=== PATIENT | female | born 1950 | race Caucasian/White ===

== ENCOUNTER → 2017-11-06 15:01 | Outpatient (CLI) | payer MEDICARE, SELFPAY ==
[2017-11-06 16:08] LABS: Hematocrit 44.1 % (37-47); Hemoglobin 14.7 g/dl (12.0-15.0); Mean Corp Hgb Conc 33.3 g/gl (32-36); Mean Corpuscular Hgb 30.6 pg (27.0-32.0); Mean Corpuscular Volume 91.9 fL (81-99); Platelet Count 266 K/mm3 (150-450); RBC Distribution Width CV 13.7 % (11.6-14.6); RBC Distribution Width SD 45.3 fl (35.1-43.9); White Blood Count 5.8 K/mm3 (4.4-11.0)
[2017-11-06 16:25] LABS: Scan Indicated on CBC? Y/N NO
[2017-11-06 16:38] LABS: Hemoglobin A1c 5.5 % (4.2-6.3)
[2017-11-06 16:46] LABS: ALB/GLOB Ratio 1.1 RATIO (0.9-2.4); AST(SGOT) 21 U/L (15-37); Alanine Aminotransfer ALT/SGPT 30 U/L (13-56); Albumin, Serum 4.1 g/dL (3.2-5.0); Alkaline Phosphatase 71 U/L (45-117); Anion Gap 10 (5-15); BUN 13 mg/dL (7-18); BUN/Creat Ratio 16.1 RATIO (10-20); CRP < 2.90 mg/L (0.0-3.0); Calcium,Total 9.4 mg/dL (8.5-10.1); Chloride 101 mmol/L (98-107); Cholesterol 261 mg/dL (200); Creatinine, Serum 0.81 mg/dL (0.55-1.02); EST Glomerular Filtration Rate 76 mL/min (>60); Est Glom Filt Rate - Afr Amer 92 mL/min (>60); Ferritin 52 ng/mL (8-252); Free T3 2.8 pg/mL (2.18-3.98); Globulin 3.7 g/dL (2.2-4.2); Glucose 79 mg/dL (74-106); High Density Lipoprotein 73 mg/dL; Protein, Total 7.8 g/dL (6.4-8.2); Sodium Level 138 mmol/L (136-145); T4 Free Direct 0.96 ng/dL (0.76-1.46); Thyroid Stim Hormone (TSH) 2.63 uIU/mL (0.358-3.74); Triglycerides 75 mg/dL; Very Low Density Lipoprotein 15 mg/dL (5-40); Vitamin B12 > 2000 pg/mL (211-911); Vitamin D,25 Hydroxy 51.9 ng/mL (19.95-100.01)
[2017-11-11 13:50] LABS: T3 Reverse 21.1 ng/dL (9.2-24.1)
== END ==
PROVIDERS: Family Provider Nurse Practitioner; PCP Nurse Practitioner
DX: E78.00 Pure hypercholesterolemia, unspecified (principal); E55.9 Vitamin D deficiency, unspecified; I25.9 Chronic ischemic heart disease, unspecified; D64.9 Anemia, unspecified; R73.09 Other abnormal glucose; R63.5 Abnormal weight gain; R53.83 Other fatigue
CPT/HCPCS: 36415; 80053; 80061; 82306; 82533; 82607; 82627; 82728; 83036; 84439; 84443; 84481; 84482; 85027; 86140; 82626

== ENCOUNTER → 2018-11-21 11:50 | Outpatient (CLI) | payer MEDICARE, OTHER, SELFPAY ==
[2016-01-16 14:02] VITALS: BMI 37.4
[2018-11-21 12:38] LABS: Absolute Lymphocyte Count 1.67 X10^3/ul (0.83-4.51); Absolute Neutrophil Count 3.1 X10^3/uL (2.0-7.7); Basophil# 0.02 X10^3/uL; Basophil% 0.4 % (0-1); Eosinophil# 0.06 X10^3/uL; Eosinophils% 1.1 % (0-5); Hematocrit 44.9 % (37-47); Hemoglobin 14.1 g/dl (12.0-15.0); Lymphocyte # 1.67 X10^3/ul (4.0); Lymphocyte % 31.3 % (19-41); Mean Corp Hgb Conc 31.4 g/gl (32-36); Mean Corpuscular Hgb 29.5 pg (27.0-32.0); Mean Corpuscular Volume 93.9 fL (81-99); Monocyte% 9.4 % (0-10); Neutrophil # 3.08 X10^3/uL (2.7-7.7); Neutrophil % 57.8 % (47-70); Platelet Count 270 K/mm3 (150-450); RBC Distribution Width CV 13.6 % (11.6-14.6); RBC Distribution Width SD 45.4 fl (35.1-43.9); Red Blood Count 4.78 M/mm3 (4.2-5.4); White Blood Count 5.3 K/mm3 (4.4-11.0)
[2018-11-21 12:43] LABS: POSITIVE COUNT NO; POSITIVE DIFFERENTIAL NO; POSITIVE MORPHOLOGY NO
[2018-11-21 12:50] LABS: Hemoglobin A1c 5.6 % (4.2-6.3)
[2018-11-21 13:15] LABS: Progesterone Level 1.65 ng/mL (See Comment); Vitamin B12 856 pg/mL (211-911); Vitamin D,25 Hydroxy 56.2 ng/mL (29.95-100.01)
[2018-11-21 13:29] LABS: Homocysteine 8.1 umol/L (3.2-10.7)
[2018-11-21 13:30] LABS: BUN 14 mg/dL (7-18); BUN/Creat Ratio 16.9 RATIO (10-20); Calcium,Total 9.3 mg/dL (8.5-10.1); Cholesterol 259 mg/dL (200); Creatinine, Serum 0.83 mg/dL (0.55-1.02); EST Glomerular Filtration Rate 74 mL/min (>60); Est Glom Filt Rate - Afr Amer 89 mL/min (>60); Glucose 84 mg/dL (74-106); Triglycerides 98 mg/dL
[2018-11-21 13:31] LABS: Anion Gap 8 (5-15); CRP, High Sensitivity Cardiac 1.25 mg/L; Chloride 106 mmol/L (98-107); Estradiol 113.4 pg/mL; Ferritin 52 ng/mL (8-252); Free T3 3.1 pg/mL (2.18-3.98); High Density Lipoprotein 75 mg/dL; Iron 138 ug/dL (50-170); Iron Binding Capacity,Total 394 ug/dL (250-450); Potassium 3.5 mmol/L (3.5-5.1); Sodium Level 140 mmol/L (136-145); T4 Free Direct 0.95 ng/dL (0.76-1.46); Thyroid Stim Hormone (TSH) 1.83 uIU/mL (0.358-3.74); Very Low Density Lipoprotein 20 mg/dL (5-40)
[2018-11-24 09:07] LABS: Testosterone, % Free 0.63 % (0.50-2.80); Testosterone, Free 0.38 ng/dL (0.10-0.85); Testosterone, Total 61 ng/dL (3-41)
== END ==
PROVIDERS: Family Provider Nurse Practitioner; PCP Nurse Practitioner
DX: D64.9 Anemia, unspecified (principal); M25.562 Pain in left knee; I25.9 Chronic ischemic heart disease, unspecified; E55.9 Vitamin D deficiency, unspecified; E78.00 Pure hypercholesterolemia, unspecified; R73.09 Other abnormal glucose; R63.5 Abnormal weight gain
CPT/HCPCS: 36415; 80048; 80061; 82306; 82330; 82533; 82607; 82670; 82728; 83036; 83090; 83540; 83550; 84144; 84402; 84403; 84439; 84443; 84481; 85025; 86141

== ENCOUNTER → 2019-06-05 09:22 | Outpatient (CLI) | payer MEDICARE, OTHER, SELFPAY ==
[2019-06-08 13:09] LABS: Testosterone, Free 0.29 ng/dL (0.10-0.85); Testosterone, Total 26 ng/dL (3-41)
== END ==
PROVIDERS: Family Provider Nurse Practitioner; PCP Nurse Practitioner
DX: N95.9 Unspecified menopausal and perimenopausal disorder (principal); F43.0 Acute stress reaction; Z96.659 Presence of unspecified artificial knee joint
CPT/HCPCS: 36415; 84402; 84403

== ENCOUNTER → 2019-08-25 09:53 | Outpatient (CLI) | payer MEDICARE, OTHER, SELFPAY ==
--- NOTE | 2019-08-25 10:07 | RAD_ITS ---
STUDY: X-RAY - LUMBAR SPINE REASON FOR EXAM: Female, 68 years old. Pain. TECHNIQUE: 5 view(s) of the lumbar spine were obtained. COMPARISON: None FINDINGS: Normal lumbar lordosis. There is no substantial scoliosis. There is anteversion of L4 on L5 of 1 cm. The alignment is otherwise preserved. There is multilevel endplate spondylosis of the lumbar vertebrae. There is multi-level degenerative disc disease with multi-level disc space narrowing. There is no evidence of acute fracture or loss of vertebral axial height. There is no demonstrated spondylolysis of the pars interarticulares. Cholecystectomy clips are seen in the right upper quadrant. RAD/L/S Spine Min 4 Views IMPRESSION: Degenerative change lumbar spine with L4-5 spondylolisthesis. Electronically Signed: Mg Mckeon DO at 17:32 EST Tel [phone], Service support ,
== END ==
PROVIDERS: Family Provider Nurse Practitioner; PCP Nurse Practitioner; Referring Provider Nurse Practitioner; Visit Provider Nurse Practitioner
DX: M43.16 Spondylolisthesis, lumbar region (principal); M51.36 Other intervertebral disc degeneration, lumbar region; M48.061 Spinal stenosis, lumbar region without neurogenic claudication
CPT/HCPCS: 72100; 72110

== ENCOUNTER → 2019-10-23 08:35 | Outpatient (CLI) | payer MEDICARE, OTHER, SELFPAY ==
[2016-01-16 14:02] VITALS: BMI 37.4
--- NOTE | 2019-10-23 08:40 | RAD_ITS ---
STUDY: X-RAY - RIGHT SHOULDER REASON FOR EXAM: Female, 68 years old. CHRONIC BILAT PAIN TECHNIQUE: 3 view(s) of the shoulder on 4 images. COMPARISON: 2 post reduction views of the right shoulder August 10, 2012. FINDINGS: Normal glenohumeral articulation. Normal acromioclavicular joint. Normal acromion. There are subcortical cystic degenerative changes in the anterolateral margin of the humeral head. Normal visualized proximal humerus. The soft tissue structures are unremarkable. There is no demonstrated osseous destructive lesion or acute fracture. Normal visualized pulmonary apex. RAD/Shoulder min 2 Views IMPRESSION: Minor subcortical cystic degenerative changes in the anterolateral right humeral head, otherwise unremarkable x-ray examination of the right shoulder. Electronically Signed: Jason Jang MD at 8:52 EST , Service support ,
--- NOTE | 2019-10-23 08:40 | RAD_ITS ---
STUDY: X-RAY - LEFT SHOULDER REASON FOR EXAM: Female, 68 years old. CHRONIC BILAT PAIN TECHNIQUE: 3 view(s) of the shoulder on 4 images. COMPARISON: None. FINDINGS: Normal glenohumeral articulation. Normal acromioclavicular joint. Normal acromion. There are small subcortical cystic degenerative changes in the anterolateral margin of the humeral head. Normal visualized proximal humerus. The soft tissue structures are unremarkable. There is no demonstrated osseous destructive lesion or acute fracture. Normal visualized pulmonary apex. Multilevel [id number] degenerative changes are seen in the visualized spine. RAD/Shoulder min 2 Views IMPRESSION: No acute osseous abnormality of the left shoulder. Electronically Signed: Jason Jang MD at 8:53 EST , Service support ,
== END ==
PROVIDERS: PCP Nurse Practitioner; Referring Provider Nurse Practitioner; Visit Provider Nurse Practitioner
DX: M25.511 Pain in right shoulder (principal); M25.512 Pain in left shoulder
CPT/HCPCS: 73030

== ENCOUNTER 2020-01-01 09:00 | Outpatient (RCR) | payer MEDICARE, OTHER, SELFPAY ==
--- NOTE | 2019-09-02 12:16 | HP.PTEVAL_ITS ---
Patient's Visit Information REZA MIGUEL is a 68 year old F referred to Physical Therapy by AHSWIN Whitten with a diagnosis of LOW BACK PAIN. Date of Evaluation: 09/02/19 Physical Therapist: Eli Desir PT, Cert MDT - Visit Plan Frequency: 2-3x /Week Duration: 4-6 Weeks Plan: NO BACK EXTENSION. POSTURE CORRECTION/STRENGTHENING, INSTRUCTION IN APPROPRIATE BODY MECHANICS (ESPEICALLY SPECIFIC TO CARE GIVEN) AND ACTIVITY MODIFICATIONS. DLS STARTING WITH A NEUTRAL SPINE PROGRESSING ROM TOLERATED. EVELIA LE ROM, STRETCHING AND STRENGTHENING. HEP INSTRUCTION. 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 Disability: NO. Present symptoms: LOW BACK PAIN. INTERMITTENT EVELIA LE SX'S (PAIN, NUMBNESS AND TINGLING) THE BOTTOM OF MY FEET FEEL LIKE I HAVE PRICKLIES. Present since: QUITE A FEW YEARS. Pain Scale: WORST 7/10, LEAST 0/10. Currently: 5/10. Commenced as a result of: TAKING CARE OF MOM - HOSPICE. TRANSFERRING MOM. HELPED HER 5 DAYS IN A ROW BEFORE GI. ALSO HAD TO LIFT MOTHER IN LAW. Symptoms at onset: LOW BACK PAIN. Worse: LEANING OVER THE BED, LIFTING, SITTING IN THE CAR, STANDING TOO LONG. Better: HOT SHOWER, RESTING, LAZY BOY, LYING DOWN. Disturbed sleep: NO. Previous history/Previous treatment: CHIROPRACTOR. NO BACK SURGERY. NO WENCESLAO'S. HAS HAD ONE LUIS'T WITH DR. LEAL (2011) WITH WENCESLAO RECOMMENDED BUT PATIENT REFUSED AND HAS NOT BEEN BACK. Coughing/sneezing/straining: POSITIVE. Gait: I DON'T WALK STRAIGHT BECAUSE OF MY BACK AND MY KNEE. LEFT TKR 2016. Difficulty initiating urinatin: NO. Accidents: FALL AT HOME IN 2006 - INJURED RIGHT KNEE. Unexplained weight loss: NO. Imaging: LUMBAR X-RAY - L45 SPONDYLOLISTHESIS, SPONDYLOSIS AND DDD WITHOUT SPONDYLOYSIS. PMH/Recent major surgery: LEFT TKR 2016 - I NEVER HAD A FULL RECOVERY - (DR. ARCE). OTHER: PATIENT REPORTS SHE DOES A LOT OF OTHER LIFTING AT HOME TOO - LIFTING 50 LB BAGS OF SALT AT HOME TODAY. - Objective Sitting/Standing Posture: POOR. INCREASED TRUNK FLEXION. Active Correction of posture: WORSE. Other Observations: UNABLE TO TRANSFER FROM SIT TO STAND WITHOUT UE ASSIST. INDEP GAIT INTO PT WITHOUT ANY ASSISTIVE DEVICES OR LOB BUT LIMPING ON LLE. Motor deficit: EVELIA LE WEAKNESS - RIGHT HIP 4/5, LEFT HIP 4-/5. RIGHT KNEE 4/5, LEFT KNEE 4-/5, ANKLES 5/5. Sensory deficit: EVELIA LE LIGHT TOUCH SENSATION INTACT AND SYMMETRICAL. ROM deficit: EVELIA LE'S WFL. Reflexes: NT. Dural Signs: NEGATIVE EVELIA LE'S. Lumbar mvmt loss: flex - NIL. ext - NT. R SG - JOHANNA. L SG - MOD. LUMBAR ROM TESTING ALL PLANES INCREASES C/O LBP. Core strength: POOR. OTHER: PATIENT AGGITATED ABOUT QUESTIONAIRE AND DID NOT WANT TO COMPLETE IT. THIS PT RECOMMENDED AQUATIC THERAPY. DISCUSSED POSSIBLE BENEFITS OF AQUATIC THERAPY AND PATIENT REFUSING AT THIS TIME BUT STATES SHE MAY CONSIDER IN THE FUTURE. - Goals Goal 1:: DECREASE C/O LBP AND EVELIA LE SX'S. Goal Time Frame: 4-6 Weeks Goal 2:: IMPROVE BENDING, LIFTING, SITTING, STANDING, WALKING, LEANING, PUSHING, PULLING, CARETAKING AND TRAVEL FUNCITON. Goal Time Frame: 4-6 Weeks Goal 3:: INSTRUCT IN PROPHYLAXIS Goal Time Frame: 4-6 Weeks - Rehabilitation Potential Rehabilitation Potential: Fair - Anticipated Interventions Patient/Client Instruction: Educate patient on: Condition, Plan of Care, Risk Factors, Benefits of Fitness Program For the Purpose of:: To improve self management Therapeutic Exercise to Include: Strength training, Body mechanics, Postural training, Dynamic Lumbar Stabilization For the Purpose of:: To decrease pain, To increase ROM, To improve muscle performance and motor function, To increase tolerance to activity/condition/position, To improve ability of physical actions for home/community/work/leisure, To improve gait and locomotor functions Thank you for the opportunity to evaluate your patient. For Medicare and Medicare HMO plans, please review the plan of care and approve it. It will need to be FAXED BACK to us at [phone] for Medicare purposes. For Medicare only, by signing this I certify the plan of care. Please let me know if there are questions or concerns regarding this plan of care. Physician Signature: Date:
--- NOTE | 2019-10-21 10:15 | HP.PTREVAL ---
Fariha Houser, ROOFING MACHINE OPERATOR-C, It has been my pleasure to treat REZA MIGUEL over the last 7 visits for LOW BACK PAIN. Please see the progress note below for an update on the physical therapy plan of care! Subjective: PATIENT REPORTS SHE WAS TAKING CARE OF HER MOTHER AT THE BEGINNING OF SEPTEMBER AND SHE CANCELLED HER LUIS'TS. MOTHER SEP 30 2019. THIS IS THE FIRST SHE HAS BEEN ABLE TO GET BACK TO PT. PATIENT REPORTS SHE IS A TINY BIT BETTER SINCE HAVING SOME THERAPY BUT SHE KNOWS SHE NEEDS MORE. SHE REPORTS THERAPY WAS HELPING BEFORE SHE HAD TO STOP TO BE WITH HER MOTHER. HELPING [id number] NOW. SEEING A CHIROPRACTOR FOR LEFT SHOULDER PAIN. HAD A FALL ON LEFT SHLD A FEW YEARS AGO. Objective/Function: PATIENT WAS SEEN TODAY FOR RE-ASSESSMENT OF PROGRESS TOWARD THE SET PT GOALS AND THE NEED FOR FURTHER PHYSICAL THERAPY VS READINESS FOR DISCHARGE. SHE WAS TOLERATING LAND THERAPY WELL PRIOR TO NEEDING TO HOLD THERAPY TO BE WITH HER MOTHER. UPON EXAM TODAY:PATIENT IS UNABLE TO TRANSFER FROM SIT TO STAND WITHOUT UE ASSIST. INDEP GAIT INTO PT WITHOUT ANY ASSISTIVE DEVICES OR LOB BUT LIMPING ON LLE. Motor deficit: EVELIA LE WEAKNESS - RIGHT HIP 4/5, LEFT HIP 4-/5. RIGHT KNEE 4/5, LEFT KNEE 4-/5, ANKLES 5/5. Sensory deficit: EVELIA LE LIGHT TOUCH SENSATION INTACT AND SYMMETRICAL. ROM deficit: EVELIA LE'S WFL. Reflexes: NT. Dural Signs: NEGATIVE EVELIA LE'S. Lumbar mvmt loss: flex - NIL. ext - NT. R SG - JOHANNA. L SG - MOD. LUMBAR ROM TESTING ALL PLANES INCREASES C/O LBP. Core strength: POOR Plan Plan: *NO BACK EXTENSION. *LEFT SHLD PAIN. POSTURE CORRECTION/STRENGTHENING, INSTRUCTION IN APPROPRIATE BODY MECHANICS (ESPEICALLY SPECIFIC TO CARE GIVEN) AND ACTIVITY MODIFICATIONS. DLS STARTING WITH A NEUTRAL SPINE PROGRESSING ROM TOLERATED. EVELIA LE ROM, STRETCHING AND STRENGTHENING. HEP INSTRUCTION. Goals Goal 1:: DECREASE C/O LBP AND EVELIA LE SX'S. Goal Time Frame: 4-6 Weeks Goal Progress: Progressing Goal 2:: IMPROVE BENDING, LIFTING, SITTING, STANDING, WALKING, LEANING, PUSHING, PULLING, CARETAKING AND TRAVEL FUNCITON. Goal Time Frame: 4-6 Weeks Goal Progress: Progressing Goal 3:: INSTRUCT IN PROPHYLAXIS Goal Time Frame: 4-6 Weeks Goal Progress: Progressing Anticipated Interventions Patient/Client Instruction: Educate patient on: Condition, Plan of Care, Risk Factors, Benefits of Fitness Program For the Purpose of:: To improve self management Therapeutic Exercise to Include: Strength training, Body mechanics, Postural training, Dynamic Lumbar Stabilization For the Purpose of:: To decrease pain, To increase ROM, To improve muscle performance and motor function, To increase tolerance to activity/condition/position, To improve ability of physical actions for home/community/work/leisure, To improve gait and locomotor functions Please do not hesitate to contact me at [phone] by phone or if you have questions or concerns regarding this new plan of care! Sincerely, Eli Desir, PT, Cert MDT
--- NOTE | 2019-11-19 10:53 | HP.PTREVAL_ITS ---
Fariha Houser, CLINIC DIRECTOR-C, It has been my pleasure to treat REZA MIGUEL over the last 16 visits for LOW BACK PAIN. Please see the progress note below for an update on the physical therapy plan of care! Subjective: Doing some better in back. Able to do more activities but increase back pain with housework tasks. No pain right. Patient has new order to c ontinue for shoulder. Patient has bilateral shoulder pain left > to right. Patient denies parathesia in arms. Aggravetin factors raising arm OH and housework tasks. Patient unable to sleeping on left . Fell 2 weeks ago. x-rays - Objective/Function: POSTURE: rounded shoulders head foward. NEURO: denies parathesia/tingling ,reflexes C-6-7 2/3. L3-4,L4-5,L5-S1 2/3. PALAPTION: tender AC. AROM:BILATERAL SHOULDER flexion 150 degrees,abduction,ER 90 pain ER. MMT: RTC 4/5,DELTOID 4-/5 MILD PAIN. LUMBAR ROM: flexion WFL,extension WFL,side glides min loss. +GERRI/FREDDY GERBER. MMT: quads/hams 4/5,hip flexion 4-/5 ankle 4/5 Plan Plan: *NO BACK EXTENSION. CONT WITH [id number] /[id number] DLS,POSTURAL EX'S ,LE STRENGTHENING ADD ,RTC/SCAPULAR EX'S,MODALTIES, Goals Goal 1:: DECREASE C/O LBP AND EVELIA LE SX'S. Goal Time Frame: 4-6 Weeks Goal Progress: Progressing Goal 2:: IMPROVE BENDING, LIFTING, SITTING, STANDING, WALKING, LEANING, PUSHING, PULLING, CARETAKING AND TRAVEL FUNCITON. Goal Time Frame: 4-6 Weeks Goal Progress: Progressing Goal 3:: INSTRUCT IN PROPHYLAXIS Goal Time Frame: 4-6 Weeks Goal Progress: Progressing Goal 4:: NEW GOAL: DECREASE PAIN BILATERAL SHOULDERS BY 50% OT > TO IMPROVE FUNCTION WITH ADLS Goal Time Frame: 4-6 Weeks Goal 5:: NEW GOAL : PATEINT INCREASE STRENGTH BILATERAL DELTOID 4/5 WITH ;LESS PAIN FOR OH ACTIVITIES. Goal Time Frame: 4-6 Weeks Goal 6:: NEW GOAL: PATIENT ABLE TO IMPROVE ABILITY TO PERFORM ADLS' AND HOUSEWORK TASKS ABOVE 90 DEGREES Anticipated Interventions Patient/Client Instruction: Educate patient on: Condition, Plan of Care, Risk Factors, Benefits of Fitness Program For the Purpose of:: To improve self management Therapeutic Exercise to Include: Strength training, Body mechanics, Postural training, Dynamic Lumbar Stabilization For the Purpose of:: To decrease pain, To increase ROM, To improve muscle performance and motor function, To increase tolerance to activity/condition/position, To improve ability of physical actions for home/community/work/leisure, To improve gait and locomotor functions Please do not hesitate to contact me at [phone] by phone or if you have questions or concerns regarding this new plan of care! Sincerely, Jordan Bower, PT, Cert MDT, OCS
--- NOTE | 2020-01-01 10:09 | HP.PTDCSUM ---
It has been my pleasure to treat REZA MIUGEL referred by Fariha Houser ELECTRICAL LABORATORY TECHNICIAN-C, with the diagnosis of LOW BACK PAIN for a total of 26 visit(s). Discharge Date: 01/01/20 Please see the following information for a summary of their discharge status. Subjective: Doing better overall.. Able to do ADL's function and houserwork tasks . Shoulder increase with activities Bilateral Shoulder Pain Intensity (Out of 10): 3 LB Pain Intensity (Out of 10): 3 % Improvement: 60 Objective/Function: POSTURE: MILD THORACIC KYPHOSIS. GAIT:NORMAL JENNIFER. MMT: QUADS/HAMS 4/5,4-/5 HIP ,ANKLE 4/5. LUMBAR ROM: FLEXION WFL,EXTNSION MIN LOSS. AROM SHOULDER : FLEXION 160 DEGREES,ABD 155 DEGREES ,ER 90 DEGREES. MMT: RTC 4/5,DELTOID 4-/5 Goal 1:: DECREASE C/O LBP AND EVELIA LE SX'S. Goal Progress: Goal Met Goal 2:: IMPROVE BENDING, LIFTING, SITTING, STANDING, WALKING, LEANING, PUSHING, PULLING, CARETAKING AND TRAVEL FUNCITON. Goal Progress: Goal Met Goal 3:: INSTRUCT IN PROPHYLAXIS Goal Progress: Goal Met Goal 4:: NEW GOAL: DECREASE PAIN BILATERAL SHOULDERS BY 50% OT > TO IMPROVE FUNCTION WITH ADLS Goal Progress: Goal Met Goal 5:: NEW GOAL : PATEINT INCREASE STRENGTH BILATERAL DELTOID 4/5 WITH ;LESS PAIN FOR OH ACTIVITIES. Goal Progress: Goal Met Goal 6:: NEW GOAL: PATIENT ABLE TO IMPROVE ABILITY TO PERFORM ADLS' AND HOUSEWORK TASKS ABOVE 90 DEGREES Goal Progress: Goal Met Plan: D/C TO [facility] Discharge Comments: [facility]P If there are questions or concerns regarding this patient's physical therapy, please feel free to call me at [phone]. Thank you for the referral of this patient. Sincerely, Jordan Bower, PT, Cert MDT, OCS
== END 2020-01-01 19:00 | disposition home or self-care (01) ==
LOC: PT 09:00
PROVIDERS: Family Provider Nurse Practitioner; PCP Nurse Practitioner; Referring Provider Nurse Practitioner; Visit Provider Nurse Practitioner
DX: M54.5 Low back pain (principal); M25.511 Pain in right shoulder; M25.512 Pain in left shoulder
CPT/HCPCS: 97014; 97035; 97110; 97162; 97164; G0283

== ENCOUNTER → 2020-02-03 09:53 | Outpatient (CLI) | payer MEDICARE, OTHER, SELFPAY ==
--- NOTE | 2020-02-03 10:00 | BD_ITS ---
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 COMPARISON: None. FINDINGS: Lumbar Spine (L1-L4): g/cm2 (1.231) / T-score (0.3) / Z-score (1.9) Findings are suggestive of normal bone density with a low fracture risk. Left Femur Total: g/cm2 (0.861) / T-score (-1.2) / Z-score (0.1) Left Femoral Neck: g/cm2 (0.807) / T-score (-1.7) / Z-score (-0.1) Right Femur Total: g/cm2 (0.849) / T-score (-1.3) / Z-score (0.0) Right Femoral Neck: g/cm2 (0.788) / T-score (-1.8) / Z-score (0.2) BD/Dexa Bone Density Study IMPRESSION: The patient is considered osteopenic as outlined below according to World Gio Organization (WHO) criteria with a moderate fracture risk. Reference Information: The T-score is the number of standard deviations above or below the standard which is normal for young adults at their peak bone mineral density. The World Health Organization (WHO) interprets the T-scores as follows: Above -1 Normal bone density Between -1 and -2.5 Osteopenia Equal to / or below -2.5 Osteoporosis As a practical clinical guideline, osteopenia may be graded as follows: Mild -1 through -1.5 Moderate -1.6 through -2.0 Severe -2.1 through -2.4 The Z-score is the number of standard deviations above or below age-matched controls. A Z-score of less than -1.5 would be considered abnormal. References: 1. NIH Osteoporosis and Related Bone Diseases http://www.osteo.org 2. International Society for Clinical Densitometry http://www.iscd.org 3. National Osteoporosis Foundation http://www.nof.org Electronically Signed: Ángel Sevilla, at 10:08 EDT , Service support ,
== END ==
PROVIDERS: PCP Nurse Practitioner; Referring Provider Nurse Practitioner; Visit Provider Nurse Practitioner
DX: Z78.0 Asymptomatic menopausal state (principal)
CPT/HCPCS: 77080

== ENCOUNTER → 2020-03-14 11:22 | Outpatient (CLI) | payer MEDICARE, OTHER, SELFPAY ==
[2020-03-09 12:13] VITALS: BMI 37.4
--- NOTE | 2020-03-14 11:25 | US_ITS ---
STUDY: ULTRASOUND OF THE FEMALE PELVIS - COMPLETE REASON FOR EXAM: Female, 69 years old. UTERINE PROLAPSE LMP: The patient is postmenopausal. TECHNIQUE: Transabdominal and Transvaginal TECHNICAL QUALITY: Adequate. COMPARISON: None. FINDINGS: The uterus is anteverted and is in a midline position. The uterus measures 6.9 cm x 2.9 cm x 4.3 cm. Normal uterine cervix. The endometrium measures 5.0 mm in thickness, and is . There is no demonstrated endometrial mass. There is no demonstrated myometrial mass. I.U.D. - The patient does not have an I.U.D. The right ovary is non-visualized. The left ovary is non-visualized. There is no fluid in the cul-de-sac. The pre void volume of the bladder was 306 ml. Polycystic ovary disease: No. US/Pelvic (Non ) IMPRESSION: Uterine prolapse. Endometrial thickening. Electronically Signed: Ángel Sevilla, at 8:55 EDT , Service support ,
--- NOTE | 2020-03-14 11:25 | US_ITS ---
STUDY: ULTRASOUND OF THE FEMALE PELVIS - COMPLETE REASON FOR EXAM: Female, 69 years old. UTERINE PROLAPSE LMP: The patient is postmenopausal. TECHNIQUE: Transabdominal and Transvaginal TECHNICAL QUALITY: Adequate. COMPARISON: None. FINDINGS: The uterus is anteverted and is in a midline position. The uterus measures 6.9 cm x 2.9 cm x 4.3 cm. Normal uterine cervix. The endometrium measures 5.0 mm in thickness, and is . There is no demonstrated endometrial mass. There is no demonstrated myometrial mass. I.U.D. - The patient does not have an I.U.D. The right ovary is non-visualized. The left ovary is non-visualized. There is no fluid in the cul-de-sac. The pre void volume of the bladder was 306 ml. Polycystic ovary disease: No. US/Transvaginal Non- IMPRESSION: Uterine prolapse. Endometrial thickening. Electronically Signed: Ángel Sevilla, at 8:55 EDT , Service support ,
== END ==
PROVIDERS: PCP Nurse Practitioner; Referring Provider Obstetrics & Gynecology; Visit Provider Obstetrics & Gynecology
DX: N81.2 Incomplete uterovaginal prolapse (principal)
CPT/HCPCS: 76830; 76856

== ENCOUNTER → 2020-03-21 13:46 | Outpatient (CLI) | payer MEDICARE, OTHER, SELFPAY ==
[2020-03-09 12:13] VITALS: BMI 37.4
[2020-03-21 15:36] LABS: Homocysteine 6.9 umol/L (3.2-10.7)
[2020-03-21 15:57] LABS: Progesterone Level 0.69 ng/mL (See Comment); Vitamin D,25 Hydroxy 42.1 ng/mL
[2020-03-21 17:06] LABS: Vitamin B12 > 2000 pg/mL (211-911)
[2020-03-21 17:32] LABS: ALB/GLOB Ratio 1.1 RATIO (0.9-2.4); AST(SGOT) 25 U/L (15-37); Alanine Aminotransfer ALT/SGPT 33 U/L (13-56); Albumin, Serum 4.1 g/dL (3.2-5.0); Alkaline Phosphatase 71 U/L (45-117); Anion Gap 7 (5-15); BUN 15 mg/dL (7-18); BUN/Creat Ratio 19.6 RATIO (10-20); Calcium,Total 9.1 mg/dL (8.5-10.1); Chloride 103 mmol/L (98-107); Cholesterol 273 mg/dL (200); Creatinine, Serum 0.77 mg/dL (0.55-1.02); EST Glomerular Filtration Rate 80 mL/min (>60); Est Glom Filt Rate - Afr Amer 97 mL/min (>60); Estradiol 54.5 pg/mL; Ferritin 53 ng/mL (8-252); Free T3 2.9 pg/mL (2.18-3.98); Globulin 3.8 g/dL (2.2-4.2); Glucose 76 mg/dL (74-106); High Density Lipoprotein 77 mg/dL; Iron 99 ug/dL (50-170); Iron Binding Capacity,Total 419 ug/dL (250-450); Magnesium 2.3 mg/dL (1.6-2.6); PERCENT IRON SATURATION 23.6 % (15.0-55.0); Potassium 3.4 mmol/L (3.5-5.1); Protein, Total 7.9 g/dL (6.4-8.2); Sodium Level 137 mmol/L (136-145); T4 Free Direct 0.91 ng/dL (0.76-1.46); Thyroid Stim Hormone (TSH) 2.41 uIU/mL (0.358-3.74); Triglycerides 76 mg/dL; Uric Acid 5.7 mg/dL (2.6-6.0); Very Low Density Lipoprotein 15 mg/dL (5-40)
[2020-03-22 11:18] LABS: Hematocrit 43.7 % (37-47); Mean Corpuscular Hgb 30.2 pg (27.0-32.0); Mean Corpuscular Volume 94.4 fL (81-99); Mean Platelet Vol. 9.5 fl (6.2-12.0); Platelet Count 268 K/mm3 (150-450); RBC Distribution Width CV 14.3 % (11.6-14.6); RBC Distribution Width SD 49.2 fl (35.1-43.9); Red Blood Count 4.63 M/mm3 (4.2-5.4); White Blood Count 5.2 K/mm3 (4.4-11.0)
[2020-03-22 11:43] LABS: Insulin 7.3 mU/L (2.6-37.6)
[2020-03-22 11:46] LABS: Hemoglobin A1c 5.3 % (3.8-5.6)
[2020-03-30 08:09] LABS: Testosterone, % Free 1.81 % (0.50-2.80); Testosterone, Free 0.92 ng/dL (0.10-0.85); Testosterone, Total 51 ng/dL (3-41); Thyroid Peroxidase AB < 9 IU/mL (0-34)
[2020-03-30 14:39] LABS: Anti-Thyroglobulin AB < 1.0 IU/mL (0.0-0.9); G6PD Quant Test 244 (146-376); Thyroglobulin, Serum Qt. 12.1 ng/mL (1.5-38.5)
[2020-04-05 14:45] LABS: Lipoprotein A 10.9 nmol/L (<75.0); T3 Reverse 14.2 ng/dL (9.2-24.1)
== END ==
PROVIDERS: PCP Nurse Practitioner
DX: R53.83 Other fatigue (principal); E55.9 Vitamin D deficiency, unspecified; N95.9 Unspecified menopausal and perimenopausal disorder; E66.8 Other obesity; R52 Pain, unspecified
CPT/HCPCS: 36415; 80053; 80061; 81291; 82306; 82330; 82533; 82607; 82627; 82670; 82728; 82746; 82955; 83036; 83090; 83525; 83540; 83550; 83695; 83735; 84144; 84270; 84402; 84403; 84432; 84439; 84443; 84481; 84482; 84550; 85027; 86141; 86376; 86800; 82626

== ENCOUNTER → 2020-04-15 11:12 | Outpatient (CLI) | payer MEDICARE, OTHER, SELFPAY ==
[2020-03-09 12:13] VITALS: BMI 37.4
[2020-04-15 12:51] LABS: Vitamin D,25 Hydroxy 50.5 ng/mL
[2020-04-15 12:53] LABS: AST(SGOT) 19 U/L (15-37); Alanine Aminotransfer ALT/SGPT 30 U/L (13-56); Albumin, Serum 3.8 g/dL (3.2-5.0); Alkaline Phosphatase 74 U/L (45-117); Anion Gap 4 (5-15); BUN 16 mg/dL (7-18); BUN/Creat Ratio 19.1 RATIO (10-20); Calcium,Total 8.8 mg/dL (8.5-10.1); Chloride 106 mmol/L (98-107); Creatinine, Serum 0.84 mg/dL (0.55-1.02); EST Glomerular Filtration Rate 72 mL/min (>60); Est Glom Filt Rate - Afr Amer 87 mL/min (>60); Globulin 3.8 g/dL (2.2-4.2); Glucose 82 mg/dL (74-106); Potassium 3.7 mmol/L (3.5-5.1); Protein, Total 7.6 g/dL (6.4-8.2); Sodium Level 140 mmol/L (136-145)
== END ==
PROVIDERS: PCP Nurse Practitioner
DX: E55.9 Vitamin D deficiency, unspecified (principal); N95.9 Unspecified menopausal and perimenopausal disorder; E66.8 Other obesity; R53.83 Other fatigue; R52 Pain, unspecified
CPT/HCPCS: 36415; 80053; 82306

== ENCOUNTER → 2020-05-17 11:00 | Outpatient (CLI) | payer MEDICARE, OTHER, SELFPAY ==
[2020-03-09 12:13] VITALS: BMI 37.4
[2020-05-09 14:12] VITALS: BMI 37.4
--- NOTE | 2020-05-17 16:04 | EKG12_ITS ---
Test Reason : PRE-OP Blood Pressure : / mmHG Vent. Rate : 086 BPM Atrial Rate : 086 BPM P-R Int : 138 ms QRS Dur : 134 ms QT Int : 384 ms P-R-T Axes : 080 059 021 degrees QTc Int : 459 ms Normal sinus rhythm Right bundle branch block Abnormal ECG Confirmed by YAMILETH WALKER, KARIN ([id number]), editor publications LISA GE ([id number]) on 05/19/2020 10:59:19 AM Referred By: Candice Marte Confirmed By:KARIN CARSON MD
[2020-05-17 17:03] LABS: Hematocrit 42.3 % (37-47); Hemoglobin 13.4 g/dL (12.0-15.0); Mean Corp Hgb Conc 31.7 g/dL (32-36); Mean Corpuscular Hgb 29.8 pg (27.0-32.0); Mean Platelet Vol. 9.7 fl (6.2-12.0); Platelet Count 294 K/mm3 (150-450); RBC Distribution Width CV 13.7 % (11.6-14.6); White Blood Count 6.4 K/mm3 (4.4-11.0)
[2020-05-17 17:30] LABS: AST(SGOT) 18 U/L (15-37); Alanine Aminotransfer ALT/SGPT 27 U/L (13-56); Albumin, Serum 3.7 g/dL (3.2-5.0); Alkaline Phosphatase 74 U/L (45-117); Anion Gap 3 (5-15); BUN 19 mg/dL (7-18); Calcium,Total 9.1 mg/dL (8.5-10.1); Chloride 109 mmol/L (98-107); Creatinine, Serum 0.86 mg/dL (0.55-1.02); EST Glomerular Filtration Rate 70 mL/min (>60); Est Glom Filt Rate - Afr Amer 84 mL/min (>60); Globulin 3.7 g/dL (2.2-4.2); Glucose 93 mg/dL (74-106); Potassium 3.5 mmol/L (3.5-5.1); Protein, Total 7.4 g/dL (6.4-8.2); Sodium Level 142 mmol/L (136-145)
[2020-05-17 17:32] LABS: Magnesium 2.3 mg/dL (1.6-2.6)
== END ==
PROVIDERS: Anesthesiology; PCP Nurse Practitioner; Referring Provider Obstetrics & Gynecology; Visit Provider Obstetrics & Gynecology
DX: Z01.818 Encounter for other preprocedural examination (principal); Z11.59 Encounter for screening for other viral diseases
CPT/HCPCS: 36415; 80053; 83735; 85027; 86850; 86900; 86901; 87635; 93005; C9803; U0003

== ENCOUNTER → 2020-05-27 09:43 | Outpatient (CLI) | payer MEDICARE, OTHER, SELFPAY ==
[2020-05-09 14:12] VITALS: BMI 37.4
--- NOTE | 2020-05-27 09:43 | ECHOD_ITS ---
Reason For Study: RBBB ON EKG Procedure This was a 2D Doppler, Color Flow transthoracic echocardiogram. Exam performed in department. Left Ventricle Normal LV size. The estimated ejection fraction is 55 %. No evidence for diastolic dysfunction. No regional wall motion abnormalities noted. Right Ventricle Normal RV size. Normal systolic function. Atria Normal left atrium. Normal right atrium. No doppler evidence for ASD. Mitral Valve mild mitral valve prolapse. There is no mitral valve stenosis. Trivial mitral valve insufficiency. Tricuspid Valve There is no tricuspid stenosis. Trivial tricuspid valve insufficiency. Pulmonary artery systolic pressure is 35 mmHg. Aortic Valve Trisinus/trileaflet aortic valve. There is no aortic stenosis. No aortic valve insufficiency. Pulmonic Valve There is no pulmonic valvular stenosis. No pulmonic valve insufficiency. Great Vessels Normal aortic root. Pericardium/Pleural No pericardial effusion. MMode/2D Measurements & Calculations LVIDd: 4.2 cm IVSd: 0.98 cm Ao root diam: 3.7 cm LVIDs: 3.0 cm LVPWd: 0.95 cm RVDd: 2.9 cm FS: 30.3 % LAV(MOD-bp): 50.1 ml LVAd ap4: 29.8 cm2 SV(MOD-sp4): 59.4 ml LAV(MOD-bp) Indexed: 25.7 ml/m2 EDV(MOD-sp4): 100.5 ml LAV(MOD-sp2): 52.7 ml EDV(sp4-el): 104.1 ml LAV(MOD-sp4): 44.7 ml LVAs ap4: 17.7 cm2 ESV(MOD-sp4): 41.1 ml ESV(sp4-el): 40.6 ml EF(MOD-sp4): 59.1 % EF(sp4-el): 61.0 % SV(sp4-el): 63.5 ml LA A4 area: 17.4 cm2 LA dimension(2D): 3.7 cm RA A4 area: 11.9 cm2 Time Measurements MV dec time: 0.21 sec Doppler Measurements & Calculations MV E max narinder: 87.5 cm/sec Lat Peak E' Narinder: 11.6 cm/sec Med Peak E' Narinder: 9.2 cm/sec MV A max narinder: 66.4 cm/sec E/E' lat: 7.5 E/E' med: 9.5 MV E/A: 1.3 Ao V2 max: 119.1 cm/sec LV V1 max: 101.8 cm/sec PA V2 max: 83.9 cm/sec Ao max P.7 mmHg LV V1 max P.1 mmHg TR max narinder: 260.1 cm/sec TR max P.1 mmHg Interpretation Summary The estimated ejection fraction is 55 %. No evidence for diastolic dysfunction. Trivial mitral valve insufficiency. Trivial tricuspid valve insufficiency. mild mitral valve prolapse Ordering Physician: Candice Marte Referring Physician: ION FULTON Performed By: Karen Berrios RDCS
== END ==
PROVIDERS: PCP Nurse Practitioner; Referring Provider Obstetrics & Gynecology; Visit Provider Obstetrics & Gynecology
DX: R94.31 Abnormal electrocardiogram [ECG] [EKG] (principal)
CPT/HCPCS: 93306

== ENCOUNTER 2020-07-05 08:17 | Day surgery (SDC) | payer MEDICARE, OTHER, SELFPAY ==
[2020-05-09 14:12] VITALS: BMI 37.4
--- NOTE | 2020-07-02 18:00 | PCM.HPOB.BLA ---
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 combo case with milena. History and Physical Date of Admission: 07/05/20 Intake Vital Signs 05/09/20 BMI 37.4 05/09/20 Height 5 ft 1.5 in 05/09/20 Weight: 206 lb 05/09/20 BMI 38.2 05/09/20 BP 140/80 H Intake Visit Reasons: pre op [employer]ating [employer] Supervisor Required: No Is patient in pain?: No Allergies amoxicillin trihydrate [From Augmentin] Allergy (Verified 05/09/20 14:04) Rash morphine Allergy (Verified 05/09/20 14:04) Other potassium clavulanate [From Augmentin] Allergy (Verified 05/09/20 14:04) Rash perfume Adverse Reaction (Verified 05/09/20 14:04) Nausea petrolatum,white [From Petroleum Jelly] Adverse Reaction (Verified 05/09/20 14:04) Other tramadol Adverse Reaction (Verified 05/09/20 14:04) Unknown NITRO PATCH Adverse Reaction (Uncoded 01/03/16 16:00) Other Medications Biestrogen TOPICAL DAILY 01/03/16 [History Confirmed 05/09/20] Progesterone 20% TOPICAL QHS 01/03/16 [History Confirmed 05/09/20] Testosterone 1% applicatio TOPICAL DAILY 01/03/16 [History Confirmed 05/09/20] Is last menstrual period known: No Post menopausal: Yes Patient : No : No [facility] [place] Medical History (Updated 05/09/20 @ 14:[address] 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 Candice Marte MD) Smoking Status: Never smoker alcohol intake: never substance use type: does not use caffeine: Yes what type of physical activity do you participate in: walking do you feel safe at home: Yes additional social history: [employer]- retired HPI pre op: Details: REZA MIGUEL is a 69 year old who presents for preoperative visit. she is having a TVHBS combo case with dr abbott. she declines ovarian removal unless they are cancerous. Pregancy History 1 Elective abortions Hx Para 0 Spontaneous abortions 1 Hx # Term Pregnancies Ectopic pregnancies Hx # Pregnancies Multiple births # of living children ROS Const Constitutional: Denies fatigue, fever(s), headache(s), increased appetite, poor appetite, weight gain or weight loss ENT ENT: Denies dizziness or dry mouth Cardio Card: Denies chest pain Resp Resp: Denies cough or dyspnea GI GI: Reports as per HPI; denies abdominal pain, constipation, nausea or vomiting : Reports as per HPI; denies difficulty urinating, painful urination, pelvic pain, urinary frequency, urinary incontinence, urinary hesitancy, urinary urgency, vaginal discharge, vaginal dryness, vaginal odor or vaginal itching Musc Musc: Denies joint pain, back pain or muscle weakness Skin Skin/Breast: Denies hair loss, change in hair, dry skin, breast lump, breast pain or breast skin changes Neuro Neuro: Denies dizziness Psych Psych: Reports anxiety; denies depression Endo Endo: Denies cold intolerance, excessive sweating, heat intolerance or increased thirst Harsh/Lymph Hematologic/Lymphatic: Denies easy bleeding, Denies easy bruising, Denies enlarged lymph nodes Exam Const General: cooperative, healthy appearing, comfortable, no acute distress, well developed Orientation: alert HENMN Head: normal to inspection, normocephalic Ears: hearing grossly normal bilaterally, external ears normal Nose: external nose normal, nares normal Face and sinus: normal facial exam Neck Neck: normal visual inspection, no lymphadenopathy, trachea midline Thyroid: thyroid normal Chest Chest palpation & inspection: normal inspection of the chest Resp Effort & Inspection: normal respiratory effort Auscultation: clear to auscultation bilaterally Cardio Rate: regular rate Rhythm: regular rhythm Heart Sounds: S1 normal, S2 normal GI Inspection: normal to inspection, non-distended Palpation: soft, no hepatosplenomegaly General: bladder normal to palpation External Female Exam: normal external appearance, normal appearance of the urethra Urethra: normal appearance of the urethra Speculum Exam - Vagina: normal appearance of the vagina, normal vaginal discharge Speculum Exam - Cervix: normal appearance of the cervix, nontender Bimanual Exam- Vagina & Uterus: bladder normal to palpation, No cervical tenderness Bimanual Exam- Adnexa, other: normal adnexae, adnexae mobile, no adnexal masses, vaginal apex descent (uterine prolapse moderate to severe) Pelvic Support: vaginal apex descent (uterine prolapse moderate to severe) Musc Cervical Spine: other Other: gross motor intact no deficits, full bilateral strength Skin General: no rashes or lesions noted Neuro General: alert, awake, moves all extremities, no focal motor deficits Motor: muscle tone normal throughout Extrem General: normal to inspection, no pedal edema Psych Appearance: grossly normal Mental Status: mental status grossly normal Affect: normal affect Speech and Movement: speech and movement normal Assessment & Plan Problems 1. Incomplete uterovaginal prolapse N81.2 discussed nonsurgical and surgical interventions, desires TVHBS declines oophorectomy unless abnormal at time of surgery. combo case with milena. 2. 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 I have discussed with the patient the risks, benefits, and alternatives of the procedure which include but are not limited to risks of anesthesia, bleeding, infection, possible damage to bowel, bladder, or surrounding vasculature which could lead to additional surgery to evaluate any complications. Patient agrees to procedure and wishes to proceed. ACOG/uptodate references given for additional information regarding procedure. 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
[2020-07-05] VITALS (17 sets, daily range): BP systolic 111–169; BP diastolic 53–96; PULSE 61–96; RESP 10–18; TEMP 36.1–37.3; O2SAT 96–100; BMI 36.1
[2020-07-05] MEDS: Enoxaparin 40 MG/0.4 ML Syringe SC (09:03)
[2020-07-05] MEDS: Scopolamine 1mg/72hr Patch 1 PATCH TRANSDERM. (09:04)
[2020-07-05] MEDS: Celecoxib 200 MG Capsule 400 MG PO (09:04)
[2020-07-05] MEDS: Gabapentin 600 MG Tablet PO (09:04)
[2020-07-05] MEDS: Acetaminophen 500 MG Tablet 1000 MG PO (09:04)
[2020-07-05] MEDS: Lactated Ringers 1,000 ML 40 ML IV (09:05)
[2020-07-05] MEDS: dexAMETHasone 10 MG/ML Vial 8 MG IV (09:05)
[2020-07-05 09:56] LABS: Bedside Glucose 99 mg/dL (70-110)
--- NOTE | 2020-07-05 10:10 | HYST_PTH ---
PATIENT: REZA MIGUEL LOC: [facility] [place] U#:[id number] AGE/SX: 69/F ROOM: RE07/05/[address]: Dr. Candice Marte MD : 1950 BED: DIS: 07/06/2020 SPEC #: [id number] RECD: 07/05/20 15:46 STATUS: KORI REAlfonso #: [id number] ADY: 07/05/20 10:[address]: Candice Marte DEPT: SURGICAL PATHOLOGY RECD BY: Ellie Lizama ENTERED: 07/06/20 10:12 SP TYPE: HYSTERECT OTHR DR: MD Fariha Castillo, [employer]OR [employer] Tissues: Uterus, NOS Procedures: Surgery Specimen Level V HEADER OPERATION: ERAS, vaginal hysterectomy PRE-OP DIAGNOSIS: Incomplete uterovaginal prolapse, postmenopausal atrophic vaginitis TISSUE SUBMITTED: Uterus, cervix MICROSCOPIC DIAGNOSIS Uterus and cervix, vaginal hysterectomy: Cervix - focal ulceration, acute and chonic cystic cervicitis. - Hyperkeratosis and parakeratosis. Endometrium - weakly proliferative endometrium with extensive cystic changes. Myometrium - no pathologic diagnosis. PATRICK:arnaldo 07/07/20 MICROSCOPIC DESCRIPTION Slides are reviewed. GROSS DESCRIPTION Received in fixative is one container labeled with the patient's name and designated uterus, cervix. The specimen consists of a hysterectomy specimen consisting of uterus with cervix and weighing 37 gm and measuring 6.5 x 4 x 2.5 cm. The serosal surface is amado, glistening. The ectocervical mucosa is unremarkable. The external os is slit-like in contour. The endocervical canal measures 2.5 cm in length and the endocervical mucosa is amado, glistening and unremarkable. Sections of cervix reveal a few cysts filled with mucoid material. The narrow endometrial cavity measures 3 cm in length and 0.5 cm in width. The endometrium is amado, glistening without any mass lesion and measures <0.1 cm in thickness. Sections of the uterine wall do not reveal any mass lesion and it measures up to 1.5 cm in thickness. Crt sections are submitted in six cassettes as follows: 1 - anterior cervix, 2 - posterior cervix, 3 & 4 - anterior uterine wall, 5 & 6 - posterior uterine wall. / Aure 07/06/20 TC: 5 CPT: 16918
[2020-07-05] MEDS: Vasopressin 20 UNITS/ML Vial (10:28)
--- NOTE | 2020-07-05 10:33 | OP.PCM_ITS ---
Problem List (1) Incomplete uterovaginal prolapse Status: Acute Comment: discussed nonsurgical and surgical interventions, desires TVHBS declines oophorectomy unless abnormal at time of surgery. combo case with milena. Report of Operation Date of Procedure: 07/05/20 Pre-Operative Diagnosis: Incomplete uterovaginal prolapse Post-Operative Diagnosis: Same Surgery/Procedure Performed:: Posterior repair, bilateral sacrospinous ligament fixation with dermis, cystoscopy with bilateral ureteral catheterization, aborted anterior repair Type of Anesthesia:: General Estimated Blood Loss (mL): 25cc Description of Procedure: The patient is a 69-year-old female with significant pelvic organ prolapse who presented to the office for definitive treatment. She underwent evaluation with urodynamics and cystoscopy. The decision was made to proceed with definitive surgical intervention. Informed consent was obtained. The patient was taken to the operating room placed on operating room table. Anesthesia monitored the head, neck, airway, IV access and vital signs throughout the case. Once anesthesia was approval administered the patient was placed into dorsal lithotomy in Trendelenburg position. She was prepped and draped in usual sterile fashion. A 16 [place] Perez catheter was inserted under direct visualization. The hysterectomy was performed by Dr. Marte and the cuff was closed. On examination, the posterior vaginal wall revealed more length and the decision was made to proceed with the sacrospinous ligament fixation posteriorly. The submucosa was injected with vasopressin for hemostatic control and hydrostatic dissection. Sharp and blunt dissection was performed following a midline incision. Bilaterally the sacrospinous ligaments were identified after palpation of the ischial spines. The ligaments were freed from surrounding tissues. Ethibond sutures were passed using the Capio device. The sutures were brought through the dermis and then full-thickness into the vaginal canal at the apex. The dermis was then sutured to the white line bilaterally using 2-0 Vicryl and then to the tissue just proximal to the perineal body. The midline incision was closed using running interlocking 2-0 Vicryl. At this time the Ethibond sutures were tied into position and the prolapse was reduced given good vault length. At this time it was clear that the cuff closure was very close to the middle of the anterior vaginal wall. A cystoscopy confirmed that the ureters were very medial in insertion site and the cuff closure was only approximately 1 cm beyond the trigone. There were no injuries to the urinary bladder. A whistle-tip catheter was easily inserted into each ureteral orifice to 20 cm. At this time the cystoscope was removed and the Perez catheter was inserted. The vagina was filled with estrogen cream and vaginal packing. The patient was awakened and taken the recovery room in good condition. There were no complications during this procedure. Grafts/Implants Used: Dermis - Complications None - Admit VTE Documentation VTE Present on Admission: Yes VTE Mechan Device Prophylaxis: SCD's VTE Pharm Prophylaxis ordered?: Yes
[2020-07-05] MEDS: Lactated Ringers 1,000 ML 70 ML IV ×2 (12:00→15:16)
[2020-07-05] MEDS: Estrogens,Conj. 1 Tube 0.625 DOSE VAGINAL (12:42)
[2020-07-05] MEDS: Ketorolac 30 MG/ML Syringe IV ×2 (13:26→18:16)
--- NOTE | 2020-07-05 15:31 | OP.PCM_ITS ---
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 combo case with milena. Report of Operation Date of Procedure: 07/05/20 Pre-Operative Diagnosis: procidentia Post-Operative Diagnosis: same Surgery/Procedure Performed:: tvh Description of Surgical Findings:: complete uterine procidentia nl ovaries and tubes scrap yard worker: Desi Valdes Type of Anesthesia:: General Special Medications: none Specimen's removed: uterus Drains: valdez Estimated Blood Loss (mL): 50 Fluids Replaced: crystalloid Description of Procedure: Patient was taken to the operating room and was placed under general anesthesia was prepped and draped in normal sterile fashion in the dorsal lithotomy position. Preoperative antibiotics and SCDs and Valdez catheter was placed inside the bladder. Weighted speculum was placed in the vagina and the anterior and posterior lip of the cervix was grasped with 2 Yfn clamps and circumferentially injected with dilute vasopressin. A circumferential incision was made with the bovie and circumferential dissection performed to release the vaginal mucosa off the uterus. Due to the severe prolapse it was difficult to enter in posterior but the anterior was visible. The hysterectomy was performed via a modified doderlein procedure, and the anterior cul-de-sac was also dissected down and entered into sharply and the uterus delivered anteriorly. The uteroovarian ligaments clamped cut and suture ligated. the uterosacral ligaments were then also clamped cut and suture ligated. Bilateral fallopian tubes and ovaries were noted to be within normal limits but outside of the safe operative field due to a narrow view at the top of the vagina. The decision was made to leave these in vivo as previously discussed with patient if unable to reach safely. Excellent hemostasis was noted. Posterior peritoneum was reapproximated with 2-0 Vicryl and a modified Johnson stitch was placed through the posterior vaginal cuff and bilateral uterosacral ligaments across the posterior cul-de-sac skimming along to provide apical support to the vagina. The vagina was closed with [id number] 0 Vicryl pop offs including the posterior and anterior peritoneum in the reapproximation. Excellent hemostasis was noted. All instruments removed from the vagina clear urine was noted at the end of the procedure and patient was awoken and taken recovery in stable condition. Grafts/Implants Used: see milena note - Complications none - Admit VTE Documentation VTE Present on Admission: No VTE Mechan Device Prophylaxis: SCD's Multi Select Codes - Urinary/Genital Urinary/Genital CPT Codes: 67355 TVH <250 gr uterus
--- NOTE | 2020-07-05 15:38 | PCM.DC.VHY ---
<Candice Marte - Last Filed: 07/05/20 15:38> Discharge Diet: No Restrictions Discharge Activity: Return to Normal Activity, May Not Drive, May Shower May resume sexual activity in: 6-8 weeks Call your doctor if your incision/area has: Continuous Slow Oozing, Sudden Increased Bleeding, Increased Pain/ Swelling, Increased Redness, Foul Smelling Discharge Call your doctor if you observe: Fever of 101 or Higher, Inability to urinate, Inability to have a bowel movement, Using more than one pad per hour Allergies/Adverse Reactions: Allergies amoxicillin trihydrate [From Augmentin] Allergy (Verified 07/05/20 09:02) Rash morphine Allergy (Verified 07/05/20 09:02) Other potassium clavulanate [From Augmentin] Allergy (Verified 07/05/20 09:02) Rash perfume Adverse Reaction (Verified 07/05/20 09:02) Nausea petrolatum,white [From Petroleum Jelly] Adverse Reaction (Verified 07/05/20 09:02) Other ILL tramadol Adverse Reaction (Verified 07/05/20 09:02) Unknown NITRO PATCH Adverse Reaction (Uncoded 07/05/20 09:02) Other VERY ILL Medications to take at Discharge Biestrogen 1 applicatio TOPICAL QHS 01/03/16 Progesterone 20% 1 applicatio TOPICAL QHS 01/03/16 Testosterone 1% 1 applicatio TOPICAL QHS 01/03/16 Iodine [Kelp] 150 mcg PO DAILY 05/17/20 L.acidoph,Paracasei, B.lactis [Probiotic] 1 ea PO QHS 05/17/20 Steph Extract [Steph] 500 mg PO DAILY 05/17/20 Multivitamin [Multivitamins] 1 ea PO DAILY 05/17/20 [place]-3 Fatty Acids/Fish Oil [[place] 3 Fish Oil Softgel] 1 ea PO DAILY 05/17/20 Ubidecarenone/Vit E Acet [Co Q-10 100 mg Softgel] 1 ea PO DAILY 05/17/20 Vitamin B Complex 1 ea PO DAILY 05/17/20 Vitamin D3/Vitamin K2 (Mk4) [K2 Plus D3 Tablet] 1 ea PO DAILY 05/17/20 Zinc 30 mg PO DAILY 05/17/20 Naproxen [Naprosyn] 250 - 500 mg PO Q8H PRN PRN #30 tab 07/05/20 The following prescriptions were given: Naproxen [Naprosyn] 250 - 500 mg PO Q8H PRN PRN #30 tab PRN Reason: MILD PAIN Transmission Status: Received by [facility] Primary Care Physician: Fariha Houser [employer], [employer] [Primary Care Provider] - Test Results: Test results from this visit will be discussed in further detail at your follow-up appointment, if applicable. Please Follow Up With: Candice Marte MD - [phone] <Tasha Brewer [employer] - Last Filed: 07/06/20 07:04> Test Results: Test results from this visit will be discussed in further detail at your follow-up appointment, if applicable.
[2020-07-05] MEDS: 0.9% Saline Lock 10 ML Syringe IV (18:17)
[2020-07-05] MEDS: Lactated Ringers 500 ML 999 ML IV (20:39)
[2020-07-05] MEDS: Docusate Sodium 100 MG Capsule PO (21:54)
[2020-07-06] MEDS: Acetaminophen 500 MG Tablet 1000 MG PO ×4 (00:19→18:01)
[2020-07-06] MEDS: Ketorolac 30 MG/ML Syringe IV ×4 (00:19→18:01)
[2020-07-06] MEDS: Lactated Ringers 1,000 ML 100 ML IV ×2 (02:49→11:59)
[2020-07-06 04:33] VITALS: O2SAT 84
[2020-07-06 04:43] VITALS: BP 132/57; PULSE 69; RESP 18; TEMP 36.3; O2SAT 98
[2020-07-06 05:42] LABS: Hematocrit 40.7 % (37-47); Hemoglobin 12.6 g/dL (12.0-15.0); Mean Corpuscular Hgb 29.9 pg (27.0-32.0); Mean Corpuscular Volume 96.7 fL (81-99); Mean Platelet Vol. 10.2 fl (6.2-12.0); Platelet Count 216 K/mm3 (150-450); RBC Distribution Width CV 13.9 % (11.6-14.6); RBC Distribution Width SD 49.3 fl (35.1-43.9); Red Blood Count 4.21 M/mm3 (4.2-5.4); White Blood Count 10.4 K/mm3 (4.4-11.0)
[2020-07-06 06:09] LABS: Anion Gap 5 (5-15); BUN 13 mg/dL (7-18); BUN/Creat Ratio 15.9 RATIO (10-20); Calcium,Total 8.3 mg/dL (8.5-10.1); Chloride 108 mmol/L (98-107); Creatinine, Serum 0.82 mg/dL (0.55-1.02); EST Glomerular Filtration Rate 74 mL/min (>60); Est Glom Filt Rate - Afr Amer 90 mL/min (>60); Estimated Creatinine Clearance 55.07 ml/min; Glucose 95 mg/dL (74-106); Potassium 4.3 mmol/L (3.5-5.1); Sodium Level 136 mmol/L (136-145)
[2020-07-06] MEDS: 0.9% Saline Lock 10 ML Syringe IV ×3 (06:30→18:01)
[2020-07-06 07:32] VITALS: O2SAT 98
--- NOTE | 2020-07-06 08:03 | PCM.PN.OB ---
Patient Problems: Active and Suspected Problems (Last Updated 05/09/20 @ 14:[address] 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 combo case with milena. Subjective: No CP, SOB. Afebrile, pain controlled. Taking PO and has been up to chair. - Physical Exam Vitals/I&O's: Vital Signs Temp Pulse Resp BP Pulse Ox 97.4 F L 69 18 132/57 H 98 07/06/20 04:43 07/06/20 04:43 07/06/20 04:43 07/06/20 04:43 07/06/20 07:32 Oxygen Flow Rate (L/min) 2 Oxygen Delivery Method Nasal Cannula Weight: 204 lb 2.369 oz Body Mass Index (BMI) 36.1 Intake and Output for Last 24 Hours 07/04/20 07/05/20 07/06/20 23:59 23:59 23:59 Intake Total 3346.84 / 3346.84 1265 / 1265 Output Total 605 / 605 550 / 550 Balance 2741.84 / 2741.84 715 / 715 General: Alert, Oriented x3 Abdomen: Soft, Non-Distended - appropriately tender Laboratory Results 07/05/20 08:56: POC Glucose 99 07/06/20 05:16: WBC 10.4, RBC 4.21, Hgb 12.6, Hct 40.7, MCV 96.7, MCH 29.9, MCHC 31.0 L, RDW Std Deviation 49.3 H, RDW Coeff of [place] 13.9, Plt Count 216, MPV 10.2 07/06/20 05:16: Sodium 136, Potassium 4.3, Chloride 108 H, Carbon Dioxide 23.0, Anion Gap 5, BUN 13, Creatinine 0.82, Estim Creat Clear Calc 55.07, Est GFR (MDRD) Af Amer 90, Est GFR (MDRD) Non-Af 74, BUN/Creatinine Ratio 15.9, Glucose 95, Calcium 8.3 L Current Medications Acetaminophen (Acetaminophen 500 Mg Tablet) 1,000 mg PO Q6 [facility]ANKY Last Admin: 07/06/20 06:30 Dose: 1,000 mg Documented by: Docusate Sodium (Docusate Sodium 100 Mg Capsule) 100 mg PO BID [facility] Last Admin: 07/05/20 21:54 Dose: 100 mg Documented by: Enoxaparin Sodium (Enoxaparin 40 Mg/0.4 Ml Syringe) 40 mg SC DAILY [facility] Lactated Ringer's () 1,000 mls @ 100 mls/hr IV .Q10H [facility] Stop: 07/06/20 13:24 Last Admin: 07/06/20 02:49 Dose: 100 mls/hr Documented by: Ketorolac Tromethamine (Ketorolac 30 Mg/Ml Syringe) 30 mg IV Q6 [facility] Stop: 07/06/20 18:01 Last Admin: 07/06/20 06:30 Dose: 30 mg Documented by: Magnesium Chloride (Magnesium Chloride 64 Mg Delay Rel.Tablet) 128 mg PO DAILY PRN PRN PRN Reason: Constipation Nutritional Formula (Lactose Free) (Ensure Enlive 120 Ml Liquid) 120 ml PO TIDCM [facility] Ondansetron HCl (Ondansetron Odt 4 Mg Tablet) 4 mg PO Q6H PRN PRN PRN Reason: NAUSEA Oxycodone HCl (Oxycodone 5 Mg Tablet) 5 - 10 mg PO Q4H PRN PRN PRN Reason: Pain Score 4-10 Sodium Chloride (0.9% Saline Lock 10 Ml Syringe) 10 - 40 ml IV UD PRN PRN Reason: SALINE FLUSH Last Admin: 07/06/20 06:30 Dose: 10 ml Documented by: Medical Necessity - Tobacco Use Smoking Status: Never smoker Tobacco Use: Non-smoker Assessment/Plan All Active Problems (Last Updated 05/09/20 @ 14:[address] 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
[2020-07-06] MEDS: Docusate Sodium 100 MG Capsule PO (08:34)
[2020-07-06] MEDS: Enoxaparin 40 MG/0.4 ML Syringe SC (08:34)
[2020-07-06 08:55] VITALS: BP 119/64; PULSE 60; RESP 18; TEMP 36.6; O2SAT 100
--- NOTE | 2020-07-06 12:26 | PN_ITS ---
Patient Problems: Active and Suspected Problems (Last Updated 05/09/20 @ 14:[address] 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 combo case with milena. Subjective: Sitting up in bed. Tolerating oral intake. No nausea or vomiting. Is a little lightheaded. Is sore and complaining of a headache. - Physical Exam Vitals/I&O's: Vital Signs Temp Pulse Resp BP Pulse Ox 97.9 F 60 18 119/64 100 07/06/20 08:55 07/06/20 08:55 07/06/20 08:55 07/06/20 08:55 07/06/20 08:55 Oxygen Flow Rate (L/min) 2 Oxygen Delivery Method Room Air Weight: 92.6 kg Body Mass Index (BMI) 36.1 Intake and Output for Last 24 Hours 07/04/20 07/05/20 07/06/20 23:59 23:59 23:59 Intake Total 3346.84 / 3346.84 2831.67 / 2831.67 Output Total 605 / 605 750 / 750 Balance 2741.84 / 2741.84 2081.67 / 2081.67 General: Alert, Oriented x3, No apparent distress HEENT: Atraumatic, Normocephalic Oral: Moist Mucosa Neck: Supple, Trachea Midline Cardiovascular: Regular rate Abdomen: Soft Skin: No rashes Musculoskeletal: No Muscle Wasting Neurological: Cranial nerves II-XII grossly intact Psych/Mental Status: Normal Affect Comment: PVR 50 cc Laboratory Results 07/06/20 05:16: WBC 10.4, RBC 4.21, Hgb 12.6, Hct 40.7, MCV 96.7, MCH 29.9, MCHC 31.0 L, RDW Std Deviation 49.3 H, RDW Coeff of Carson 13.9, Plt Count 216, MPV 10.2 07/06/20 05:16: Sodium 136, Potassium 4.3, Chloride 108 H, Carbon Dioxide 23.0, Anion Gap 5, BUN 13, Creatinine 0.82, Estim Creat Clear Calc 55.07, Est GFR (MDRD) Af Amer 90, Est GFR (MDRD) Non-Af 74, BUN/Creatinine Ratio 15.9, Glucose 95, Calcium 8.3 L Current Medications Acetaminophen (Acetaminophen 500 Mg Tablet) 1,000 mg PO Q6 [facility] Last Admin: 07/06/20 11:50 Dose: 1,000 mg Documented by: Docusate Sodium (Docusate Sodium 100 Mg Capsule) 100 mg PO BID [facility] Last Admin: 07/06/20 08:34 Dose: 100 mg Documented by: Enoxaparin Sodium (Enoxaparin 40 Mg/0.4 Ml Syringe) 40 mg SC DAILY [facility] Last Admin: 07/06/20 08:34 Dose: 40 mg Documented by: Lactated Ringer's () 1,000 mls @ 100 mls/hr IV .Q10H [facility] Stop: 07/06/20 13:24 Last Admin: 07/06/20 11:59 Dose: 100 mls/hr Documented by: Ketorolac Tromethamine (Ketorolac 30 Mg/Ml Syringe) 30 mg IV Q6 [facility] Stop: 07/06/20 18:01 Last Admin: 07/06/20 11:51 Dose: 30 mg Documented by: Magnesium Chloride (Magnesium Chloride 64 Mg Delay Rel.Tablet) 128 mg PO DAILY PRN PRN PRN Reason: Constipation Nutritional Formula (Lactose Free) (Ensure Enlive 120 Ml Liquid) 120 ml PO TIDCM [facility] Last Admin: 07/06/20 11:51 Dose: 120 ml Documented by: Ondansetron HCl (Ondansetron Odt 4 Mg Tablet) 4 mg PO Q6H PRN PRN PRN Reason: NAUSEA Oxycodone HCl (Oxycodone 5 Mg Tablet) 5 - 10 mg PO Q4H PRN PRN PRN Reason: Pain Score 4-10 Sodium Chloride (0.9% Saline Lock 10 Ml Syringe) 10 - 40 ml IV UD PRN PRN Reason: SALINE FLUSH Last Admin: 07/06/20 11:52 Dose: 10 ml Documented by: Medical Necessity - Tobacco Use Smoking Status: Never smoker Tobacco Use: Non-smoker Assessment/Plan All Active Problems (Last Updated 05/09/20 @ 14:[address] 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
--- NOTE | 2020-07-06 12:27 | DCINST_ITS ---
Discharge Diet: No Restrictions Discharge Activity: May Not Drive, May Shower, - - No lifting over 5 pounds, no exercise, no strenuous activity. Stairs are okay. No swimming, no hot tubs, no tub bathing okay to shower. No intercourse, nothing per vagina except estrogen cream. May resume sexual activity in: 8 weeks Lifting Restrictions: 5 lbs Call your doctor if your incision/area has: Continuous Slow Oozing, Sudden Increased Bleeding, Increased Pain/ Swelling, Increased Redness, Foul Smelling Discharge Call your doctor if you observe: Fever of 101 or Higher, Inability to urinate, Inability to have a bowel movement, Using more than one pad per hour Allergies/Adverse Reactions: Allergies amoxicillin trihydrate [From Augmentin] Allergy (Verified 07/05/20 09:02) Rash morphine Allergy (Verified 07/05/20 09:02) Other potassium clavulanate [From Augmentin] Allergy (Verified 07/05/20 09:02) Rash perfume Adverse Reaction (Verified 07/05/20 09:02) Nausea petrolatum,white [From Petroleum Jelly] Adverse Reaction (Verified 07/05/20 09:02) Other ILL tramadol Adverse Reaction (Verified 07/05/20 09:02) Unknown NITRO PATCH Adverse Reaction (Uncoded 07/05/20 09:02) Other VERY ILL Medications to take at Discharge Biestrogen 1 applicatio TOPICAL QHS 01/03/16 Progesterone 20% 1 applicatio TOPICAL QHS 01/03/16 Testosterone 1% 1 applicatio TOPICAL QHS 01/03/16 Iodine [Kelp] 150 mcg PO DAILY 05/17/20 L.acidoph,Paracasei, B.lactis [Probiotic] 1 ea PO QHS 05/17/20 Steph Extract [Steph] 500 mg PO DAILY 05/17/20 Multivitamin [Multivitamins] 1 ea PO DAILY 05/17/20 [place]-3 Fatty Acids/Fish Oil [[place] 3 Fish Oil Softgel] 1 ea PO DAILY 05/17/20 RX: Vitamin B Complex 1 ea PO DAILY 05/17/20 RX: Zinc 30 mg PO DAILY 05/17/20 Ubidecarenone/Vit E Acet [Co Q-10 100 mg Softgel] 1 ea PO DAILY 05/17/20 Vitamin D3/Vitamin K2 (Mk4) [K2 Plus D3 Tablet] 1 ea PO DAILY 05/17/20 RX: Naproxen [Naprosyn] 250 - 500 mg PO Q8H PRN PRN #30 tab 07/05/20 oxycodone 5 mg capsule 5 mg PO Q6H PRN #15 cap 07/06/20 The following prescriptions were given: RX: Naproxen [Naprosyn] 250 - 500 mg PO Q8H PRN PRN #30 tab PRN Reason: MILD PAIN Transmission Status: Received by [facility] Primary Care Physician: Fariha Houser [employer], [employer]-C [Primary Care Provider] - Test Results: Test results from this visit will be discussed in further detail at your follow- up appointment, if applicable. Please Follow Up With: Komal Torres MD When: call for appt in 2 weeks Proposed Discharge Date: 07/06/20
[2020-07-06 14:42] VITALS: BP 117/65; PULSE 67; RESP 18; TEMP 36.7; O2SAT 98
== END 2020-07-06 18:35 | disposition home or self-care (01) ==
LOC: SDC 08:17 → AC 08:17 → MS3 10:02
PROVIDERS: Anesthesiology; Urology; PCP Nurse Practitioner; Referring Provider Obstetrics & Gynecology; Visit Provider Obstetrics & Gynecology
PROC: (CPT 57260; principal; 2020-07-05 09:50)
PROC: (CPT 58260; 2020-07-05 09:50)
DX: N81.2 Incomplete uterovaginal prolapse (principal); N95.2 Postmenopausal atrophic vaginitis; N72 Inflammatory disease of cervix uteri; N88.0 Leukoplakia of cervix uteri; R35.0 Frequency of micturition; R39.15 Urgency of urination; R35.1 Nocturia; I34.1 Nonrheumatic mitral (valve) prolapse; I45.10 Unspecified right bundle-branch block; I25.2 Old myocardial infarction; M51.36 Other intervertebral disc degeneration, lumbar region; E55.9 Vitamin D deficiency, unspecified; E66.9 Obesity, unspecified; R94.31 Abnormal electrocardiogram [ECG] [EKG]; Z68.36 Body mass index [BMI] 36.0-36.9, adult; Z91.89 Other specified personal risk factors, not elsewhere classified; Z79.1 Long term (current) use of non-steroidal anti-inflammatories (NSAID); Z79.899 Other long term (current) drug therapy; Z20.828 Contact with and (suspected) exposure to other viral communicable diseases
CPT/HCPCS: 00944; 57250; 58260; 36415; 80048; 82962; 85027; 86850; 86900; 86901; 87635; 88307; 94762; 99251; C9803; J7120; A4216; C1758; G0463; J2405; U0003

== ENCOUNTER → 2021-05-23 12:56 | Outpatient (CLI) | payer MEDICARE, OTHER, SELFPAY ==
[2021-05-23 13:50] LABS: Absolute Lymphocyte Count 1.44 X10^3/uL (0.83-4.51); Absolute Neutrophil Count 3.1 X10^3/uL (2.0-7.7); Basophil# 0.02 X10^3/uL; Basophil% 0.4 % (0-1); Eosinophil# 0.11 X10^3/uL; Eosinophils% 2.1 % (0-5); Hematocrit 41.8 % (37-47); Hemoglobin 13.6 g/dL (12.0-15.0); Lymphocyte # 1.44 X10^3/ul (0.83-4.51); Lymphocyte % 27.5 % (19-41); Mean Corp Hgb Conc 32.5 g/dL (32-36); Mean Corpuscular Hgb 30.2 pg (27.0-32.0); Mean Corpuscular Volume 92.7 fL (81-99); Mean Platelet Vol. 9.5 fl (6.2-12.0); Monocyte# 0.61 X10^3/uL; Monocyte% 11.6 % (0-10); NRBC Flagged by Analyzer 0 % (0-5); Neutrophil # 3.05 X10^3/uL (2.7-7.7); Neutrophil % 58.2 % (47-70); Platelet Count 254 K/mm3 (150-450); RBC Distribution Width CV 13.7 % (11.6-14.6); RBC Distribution Width SD 47.1 fl (35.1-43.9); Red Blood Count 4.51 M/mm3 (4.2-5.4); White Blood Count 5.2 K/mm3 (4.4-11.0)
[2021-05-23 14:39] LABS: Insulin 3.2 mU/L (2.6-37.6); Progesterone Level 0.89 ng/mL (See Comment); Vitamin B12 1168 pg/mL (211-911); Vitamin D,25 Hydroxy 60.1 ng/mL
[2021-05-23 14:44] LABS: Hemoglobin A1c 5.4 % (3.8-5.6); Homocysteine 7.3 umol/L (3.2-10.7)
[2021-05-23 15:11] LABS: ALB/GLOB Ratio 0.9 RATIO (0.9-2.4); AST(SGOT) 22 U/L (15-37); Alanine Aminotransfer ALT/SGPT 31 U/L (13-56); Albumin, Serum 3.6 g/dL (3.2-5.0); Alkaline Phosphatase 70 U/L (45-117); Anion Gap 4 (5-15); BUN 13 mg/dL (7-18); BUN/Creat Ratio 18.7 RATIO (10-20); Calcium,Total 9.1 mg/dL (8.5-10.1); Chloride 105 mmol/L (98-107); Cholesterol 259 mg/dL (200); EST Glomerular Filtration Rate 89 mL/min (>60); Est Glom Filt Rate - Afr Amer 108 mL/min (>60); Estradiol 57.3 pg/mL; Ferritin 54 ng/mL (8-252); Free T3 2.9 pg/mL (2.18-3.98); Globulin 3.8 g/dL (2.2-4.2); Glucose 80 mg/dL (74-106); High Density Lipoprotein 76 mg/dL; Iron 122 ug/dL (50-170); Iron Binding Capacity,Total 352 ug/dL (250-450); Magnesium 2.1 mg/dL (1.6-2.6); Potassium 3.7 mmol/L (3.5-5.1); Protein, Total 7.4 g/dL (6.4-8.2); Sodium Level 137 mmol/L (136-145); T4 Free Direct 0.92 ng/dL (0.76-1.46); Thyroid Stim Hormone (TSH) 1.24 uIU/mL (0.358-3.74); Triglycerides 77 mg/dL; Uric Acid 5.6 mg/dL (2.6-6.0); Very Low Density Lipoprotein 15 mg/dL (5-40)
[2021-05-29 16:09] LABS: Insulin Like Growth Factor 103 ng/mL (52-196); Testosterone, % Free 1.51 % (0.50-2.80); Testosterone, Free 0.89 ng/dL (0.10-0.85); Testosterone, Total 59 ng/dL (3-67); Thyroid Peroxidase AB 13 IU/mL (0-34)
[2021-05-29 16:55] LABS: Lipoprotein A 10.4 nmol/L (<75.0); T3 Reverse 16.5 ng/dL (9.2-24.1); Thyroglobulin Antibody < 1.0 IU/mL (0.0-0.9)
== END ==
PROVIDERS: PCP Nurse Practitioner
DX: R53.83 Other fatigue (principal); E55.9 Vitamin D deficiency, unspecified; N95.9 Unspecified menopausal and perimenopausal disorder; E66.8 Other obesity; R52 Pain, unspecified
CPT/HCPCS: 36415; 80053; 80061; 82306; 82330; 82533; 82607; 82627; 82670; 82728; 82746; 83036; 83090; 83525; 83540; 83550; 83695; 83735; 84144; 84270; 84305; 84402; 84403; 84439; 84443; 84481; 84482; 84550; 85025; 86141; 86376; 86800; 82626

== ENCOUNTER → 2022-11-27 | Outpatient (CLI) | payer MEDICARE, OTHER, SELFPAY ==
--- NOTE | 2022-11-27 10:07 | BD_ITS ---
STUDY: DUAL ENERGY X-RAY ABSORPTIOMETRY / DXA REASON FOR EXAM: Female, 72 years old. [id number] TECHNIQUE: Bone Mineral Density (BMD) measurements of lumbar spine and bilateral hips were obtained. COMPARISON: Comparison is made with prior study dated February 03, 2020. FINDINGS: Lumbar Spine (L1-L4): g/cm2 (0.974) / T-score (-0.4) / Z-score (1.7) Findings are suggestive of normal bone density with a low fracture risk. Left Femur Total: g/cm2 (0.827) / T-score (-0.9) / Z-score (0.6) Left Femoral Neck: g/cm2 (0.667) / T-score (-1.6) / Z-score (0.2) Right Femur Total: g/cm2 (0.808) / T-score (-1.1) / Z-score (0.4) Right Femoral Neck: g/cm2 (0.649) / T-score (-1.8) / Z-score (0.0) The T-Scores on the most recent prior examination were: Lumbar Spine (L1-L4): There has been improvement of bone density since the previous examination. Left Femur Total: which represents an improvement of 3.4%. Right Femur Total: which represents an improvement of 2.6%. BD/Dexa Bone Density Study IMPRESSION: The patient is considered osteopenic as outlined below according to World Gio Organization (WHO) criteria with a moderate fracture risk. There has been improvement of bone density since the previous examination. Reference Information: The T-score is the number of standard deviations above or below the standard which is normal for young adults at their peak bone mineral density. The World Health Organization (WHO) interprets the T-scores as follows: Above -1 Normal bone density Between -1 and -2.5 Osteopenia Equal to / or below -2.5 Osteoporosis As a practical clinical guideline, osteopenia may be graded as follows: Mild -1 through -1.5 Moderate -1.6 through -2.0 Severe -2.1 through -2.4 The Z-score is the number of standard deviations above or below age-matched controls. A Z-score of less than -1.5 would be considered abnormal. References: 1. NIH Osteoporosis and Related Bone Diseases www osteo.org 2. International Society for Clinical Densitometry www iscd.org 3. National Osteoporosis Foundation www nof.org Electronically Signed: Ángel Sevilla MD at 12:45 EDT ,
== END | disposition home or self-care (01) ==
LOC: PSN 09:59
PROVIDERS: PCP Internal Medicine; Visit Provider Internal Medicine
DX: I49.3 Ventricular premature depolarization (principal); Z78.0 Asymptomatic menopausal state
CPT/HCPCS: 77080; 93225; 93226

== ENCOUNTER → 2023-10-03 | Outpatient (CLI) | payer MEDICARE, OTHER, SELFPAY ==
[2023-10-03 12:06] LABS: Absolute Lymphocyte Count 1.42 X10^3/uL (0.83-4.51); Absolute Neutrophil Count 3.8 X10^3/uL (2.0-7.7); Basophil# 0.03 X10^3/uL; Basophil% 0.5 % (0-1); Eosinophil# 0.07 X10^3/uL; Eosinophils% 1.2 % (0-5); Hematocrit 42.7 % (37-47); Lymphocyte # 1.42 X10^3/ul (0.83-4.51); Lymphocyte % 24.1 % (19-41); Mean Corp Hgb Conc 32.8 g/dL (32-36); Mean Corpuscular Hgb 30.9 pg (27.0-32.0); Mean Corpuscular Volume 94.3 fL (81-99); Monocyte# 0.58 X10^3/uL; Monocyte% 9.8 % (0-10); NRBC Flagged by Analyzer 0 % (0-5); Neutrophil # 3.78 X10^3/uL (2.7-7.7); Neutrophil % 64.2 % (47-70); Platelet Count 249 K/mm3 (150-450); RBC Distribution Width CV 13.3 % (11.6-14.6); RBC Distribution Width SD 45.9 fl (35.1-43.9); Red Blood Count 4.53 M/mm3 (4.2-5.4); White Blood Count 5.9 K/mm3 (4.4-11.0)
[2023-10-03 12:45] LABS: Insulin 7.6 mU/L (2.6-37.6); Vitamin B12 658 pg/mL (211-911); Vitamin D,25 Hydroxy 72.3 ng/mL
[2023-10-03 12:46] LABS: Homocysteine 8.3 umol/L (3.2-10.7)
[2023-10-03 13:09] LABS: Ionized Calcium 4.78 mg/dL (4.36-5.20)
[2023-10-03 13:16] LABS: ALB/GLOB Ratio 1.1 RATIO (0.9-2.4); AST(SGOT) 22 U/L (15-37); Alanine Aminotransfer ALT/SGPT 35 U/L (13-56); Albumin, Serum 3.9 g/dL (3.2-5.0); Alkaline Phosphatase 64 U/L (45-117); Anion Gap 5 (5-15); BUN 16 mg/dL (7-18); BUN/Creat Ratio 19.9 RATIO (10-20); Calcium,Total 9.7 mg/dL (8.5-10.1); Chloride 107 mmol/L (98-107); Cholesterol 288 mg/dL (200); Creatinine, Serum 0.81 mg/dL (0.55-1.02); EST Glomerular Filtration Rate 75 mL/min (>60); Est Glom Filt Rate - Afr Amer 90 mL/min (>60); Estradiol 16.3 pg/mL; Ferritin 53 ng/mL (8-252); Globulin 3.5 g/dL (2.2-4.2); Glucose 94 mg/dL (74-106); High Density Lipoprotein 94 mg/dL; Iron 73 ug/dL (50-170); Iron Binding Capacity,Total 386 ug/dL (250-450); Magnesium 2.3 mg/dL (1.6-2.6); PERCENT IRON SATURATION 18.9 % (15.0-55.0); Potassium 3.3 mmol/L (3.5-5.1); Protein, Total 7.4 g/dL (6.4-8.2); Sodium Level 139 mmol/L (136-145); T4 Free Direct 0.91 ng/dL (0.76-1.46); Triglycerides 61 mg/dL; Uric Acid 4.5 mg/dL (2.6-6.0); Very Low Density Lipoprotein 12 mg/dL (5-40)
[2023-10-03 16:16] LABS: Hemoglobin A1c 5.2 % (3.8-5.6)
[2023-10-12 07:10] LABS: Anti-Thyroglobulin AB < 1.0 IU/mL (0.0-0.9); Insulin Like Growth Factor 121 ng/mL (52-196); Lipoprotein A 10.9 nmol/L (<75.0); T3 Reverse 8.2 ng/dL (9.2-24.1); Testosterone, % Free 1.14 % (0.50-2.80); Testosterone, Free 0.31 ng/dL (0.10-0.85); Testosterone, Total 27 ng/dL (3-67); Thyroglobulin, Serum Qt. 12.5 ng/mL (1.5-38.5); Thyroid Peroxidase AB 10 IU/mL (0-34)
== END | disposition home or self-care (01) ==
PROVIDERS: PCP Internal Medicine; Referring Provider Internal Medicine; Visit Provider Internal Medicine
DX: R53.83 Other fatigue (principal); N95.9 Unspecified menopausal and perimenopausal disorder; N81.4 Uterovaginal prolapse, unspecified; E55.9 Vitamin D deficiency, unspecified; E78.00 Pure hypercholesterolemia, unspecified; I47.19 Other supraventricular tachycardia; Z79.899 Other long term (current) drug therapy
CPT/HCPCS: 36415; 80053; 80061; 82306; 82330; 82533; 82607; 82627; 82670; 82728; 82746; 83036; 83090; 83525; 83540; 83550; 83695; 83735; 84144; 84270; 84305; 84402; 84403; 84432; 84439; 84443; 84481; 84482; 84550; 85025; 86141; 86376; 86800; 82626

== ENCOUNTER 2024-12-11 13:31 | Outpatient (CLI) | payer MEDICARE, OTHER, SELFPAY ==
[2024-12-11 14:07] LABS: Ionized Calcium 1.28 mmol/L (1.09-1.30)
[2024-12-11 14:18] LABS: Hematocrit 43.3 % (37-47); Hemoglobin 14.3 g/dL (12.0-15.0); Mean Corpuscular Hgb 30.7 pg (27.0-32.0); Mean Corpuscular Volume 92.9 fL (81-99); Mean Platelet Vol. 9.7 fl (6.2-12.0); Platelet Count 267 K/mm3 (150-450); RBC Distribution Width CV 13.4 % (11.6-14.6); RBC Distribution Width SD 45.4 fl (35.1-43.9); Red Blood Count 4.66 M/mm3 (4.2-5.4); White Blood Count 5.8 K/mm3 (4.4-11.0)
[2024-12-11 14:25] LABS: Ionized Calcium Order ORDER TUBE
[2024-12-11 19:50] LABS: ALB/GLOB Ratio 1.4 RATIO (0.9-2.4); AST(SGOT) 27 U/L (<=31); Alanine Aminotransfer ALT/SGPT 32 U/L (<=34); Albumin, Serum 4.4 g/dL (3.4-4.8); Alkaline Phosphatase 71 U/L (35-104); Anion Gap 13 (5-15); BUN 19 mg/dL (4-19); BUN/Creat Ratio 23.9 RATIO (10-20); CORTISOL PM 0.92 ug/dL (2.68-10.50); Calcium,Total 9.8 mg/dL (7.6-11.0); Carbon Dioxide 21.8 mmol/L (21.0-32.0); Chloride 104 mmol/L (98-108); Cholesterol 276 mg/dL (<=200); Creatinine, Serum 0.78 mg/dL (0.70-1.20); EST Glomerular Filtration Rate 81 (>60); Globulin 3.2 g/dL (2.2-4.2); Glucose 85 mg/dL (70-99); High Density Lipoprotein 91 mg/dL; Low Density Lipoprotein Calc. 170 mg/dL; Potassium 3.8 mmol/L (3.3-5.1); Protein, Total 7.7 g/dL (5.9-8.4); Sodium Level 139 mmol/L (133-145); Total Bilirubin 0.64 mg/dL (0.00-1.30); Triglycerides 75 mg/dL; Very Low Density Lipoprotein 15 mg/dL (5-40); cholesterol:hdl ratio screen 3.03
[2024-12-11 20:08] LABS: Iron 103 ug/dL (50-170); Iron Binding Capacity,Total 376 ug/dL (250-450); Iron Binding Capacity,Unsat 273 ug/dL (228-428); Magnesium 2.1 mg/dL (1.5-2.2); Uric Acid 5.4 mg/dL (2.6-6.0)
[2024-12-11 21:06] LABS: Estradiol 18.7 pg/mL; Ferritin 91 ng/mL (22-378); Free T3 3.3 pg/mL (2.18-3.98); Vitamin B12 917 pg/mL (180-914); Vitamin D,25 Hydroxy 70.9 ng/mL (30-100)
[2024-12-13 08:07] LABS: CRP, High Sensitivity 0.56 mg/L (0.00-3.00)
== END 2024-12-11 23:59 | disposition home or self-care (01) ==
PROVIDERS: PCP Internal Medicine
DX: E78.00 Pure hypercholesterolemia, unspecified (principal); R53.83 Other fatigue; E55.9 Vitamin D deficiency, unspecified
CPT/HCPCS: 36415; 80053; 80061; 82306; 82330; 82533; 82607; 82627; 82670; 82728; 83525; 83540; 83550; 83695; 83735; 84270; 84305; 84402; 84403; 84439; 84443; 84481; 84482; 84550; 85027; 86141; 86376; 86800; 82626

== ENCOUNTER 2025-01-10 14:00 | Emergency (ER) | payer MEDICARE, OTHER, SELFPAY ==
[2025-01-10 14:00] VITALS: BP 188/86; PULSE 88; RESP 20; TEMP 36.4; O2SAT 97; BMI 36.6
--- NOTE | 2025-01-10 14:19 | CT_ITS ---
PROCEDURE: ABDOMEN/PELVIS WITHOUT CONT 01/10/2025 REASON FOR EXAM: PAIN TECHNIQUE: Abdomen and pelvis CT without intravenous contrast. Noncontrast technique limits evaluation of the abdominal and pelvic viscera. Coronal and Sagittal reconstruction series were provided. One or more dose reduction techniques were used (e.g., Automated exposure control, adjustment of the mA and/or kV according to patient size, use of iterative reconstruction technique). PATIENT PREPARATION: Per protocol ORAL CONTRAST TYPE: None. AMOUNT: mL COMPARISON: None FINDINGS: Lung bases: Mild dependent [id number] Liver: Hepatomegaly, craniocaudal length 20.1 cm. No focal lesion. Gallbladder: No intrahepatic ductal dilation. Status post cholecystectomy. Spleen: Normal size. Pancreas: Normal size. No surrounding inflammation. Adrenals: Mild right adrenal thickening. Left adrenal gland is unremarkable. Kidneys: 3 mm right UVJ obstructing calculus with mild hydroureteronephrosis and perinephric soft tissue stranding. Additional punctate right interpolar region nonobstructing calculus. Left kidney is unremarkable. Bladder: Urinary bladder is collapsed. Reproductive Organs: No pelvic mass. Bowel: Stomach is unremarkable. No bowel dilation or wall thickening. Colonic diverticulosis without diverticulitis. Appendix: Normal appendix. Lymph nodes: No suspicious lymph node enlargement. Vasculature: Mild diffuse atherosclerotic calcifications are noted. Peritoneum / Retroperitoneum: No ascites. No pneumoperitoneum. Bones: Degenerative changes of the spine. Soft tissue: 4.6 x 6.3 cm fat containing umbilical hernia. CT/Abdomen/Pelvis without Cont IMPRESSION: 1. 3 mm right UVJ obstructing calculus with mild hydroureteronephrosis and vi nephric soft tissue stranding. Additional right interpolar region punctate nonobstructing calculus. 2. Colonic diverticulosis without diverticulitis. 3. Hepatomegaly without focal lesion. Reading Location: [facility]
[2025-01-10 14:20] LABS: Mucous, Urine 0 SEEN /hpf (<or=2+)
[2025-01-10 14:23] LABS: Color, Urine Yellow (Yellow); Glucose, Dipstick Normal (Normal); Ketone-Dipstick Negative (Negative); Leukocyte Esterase-Dipstick 500 /ul (Negative); Nitrite-Dipstick Negative (Negative); Occult Blood-Urine 150 /ul (Negative); Protein-Dipstick 15 mg/dl (Negative); Specific Gravity, Urine 1.025 (1.002-1.030); Urine Bilirubin Dipstick Negative (Negative); Urine Clarity Clear (Clear); Urine Urobilinogen Normal (Normal)
[2025-01-10] MEDS: 0.9% Normal Saline (1000mL) 1,000 ML 125 ML IV (14:30)
[2025-01-10] MEDS: Ketorolac 15 MG/ML Vial IV (14:30)
[2025-01-10 14:40] LABS: Red Blood Cells-Urine 10-25 SEEN /hpf (0-5); White Blood Cells 0-5 SEEN /hpf (0-5)
[2025-01-10 14:41] LABS: Bacteria 1+ /hpf (None Seen); Hyaline Cast 0-5 SEEN /lpf (0-5); Squamous Epithelial Cells - UA 0-5 SEEN /hpf (5-10)
--- NOTE | 2025-01-10 14:42 | EX.ED.DYSGE1 ---
HPI History of Present Illness Chief Complaint: Back Informant: patient Narrative Narrative: Patient 74-year-old female presenting with right lower back pain that radiates to her pelvis as well as urinary urgency that developed today. She states she felt fine when she first woke up this morning. She then had finished her chores when she suddenly felt some pain in her right lower back. States the pain is constant with waves of pain. She states there is a lot of pressure and feeling of needing to urinate associated this. She denies any dysuria or hematuria. She notes that she normally has 1-2 bowel movements a day and she had a normal bowel movement this morning. Since this pain is started she has had 3-4 smaller but soft bowel movements. Denies any blood in her stool. Denies any associate nausea or vomiting. Denies any fever or chills. Denies any history of diverticulitis, kidney stones or urinary tract infections. States has never had a colonoscopy. Is not on any blood thinners. Did not take anything for her pain prior to arrival. Denies any recent diet or medication changes. No other complaints or concerns at this time. 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 Hypercalcemia Hypernatremia Vitamin D deficiency Hyperlipidemia Osteopenia Uterovaginal prolapse Ecchymosis Home Medications ?Medication ?Instructions ?Recorded ?Last Taken ?Type Biestrogen 1 applicatio topical QHS 01/03/16 Unknown History Progesterone 20% 1 applicatio topical QHS hormone 01/03/16 Unknown History Testosterone 1% 1 applicatio topical QHS hormones 01/03/16 Unknown History L.acidoph,paracasei,B.animalis 10 1 ea PO QHS supplement 05/17/20 Unknown History billion cell capsule cholecalciferol (vit D3) 1,000 1 ea PO DAILY supplement 05/17/20 Unknown History unit-vitamin K2 (MK4) 100 mcg tablet coenzyme [id number] E 100 mg-5 1 ea PO DAILY supplement 05/17/20 Unknown History unit capsule iodine 150 mcg tablet 150 mcg PO DAILY supplement 05/17/20 Unknown History micki extract 500 mg capsule 500 mg PO DAILY supplement 05/17/20 Unknown History multivitamin 1 ea PO DAILY supplement 05/17/20 Unknown History omega-3 fatty acids-fish oil 684 1 ea PO DAILY supplement 05/17/20 Unknown History mg-1,200 mg capsule,delayed release vitamin B complex 1 ea PO DAILY 05/17/20 Unknown History zinc 50 mg tablet 30 mg PO DAILY supplement 05/17/20 Unknown History metronidazole 500 mg tablet 500 mg PO BID 07/20/20 Unknown History (Flagyl) hydrocodone-acetaminophen 5-325mg 1 tab PO Q6H PRN PRN Pain 3 days 01/10/25 Unknown Rx 5mg-325mg #12 TABLETS ibuprofen 600 mg tablet 600 mg PO Q6H PRN PRN pain #20 01/10/25 Unknown Rx TABLETS sulfamethoxazole 800 1 tab PO BID #14 tabs 01/10/25 Unknown Rx mg-trimethoprim 160 mg tablet (Bactrim DS) tamsulosin 0.4 mg capsule (Flomax) 0.4 mg PO DAILY #7 caps 01/10/25 Unknown Rx Allergy/AdvReac Type Severity Reaction Status Date / Time amoxicillin trihydrate (From Allergy Rash Verified 01/10/25 14:03 Augmentin) morphine Allergy Other Verified 01/10/25 14:03 potassium clavulanate (From Allergy Rash Verified 01/10/25 14:03 Augmentin) nitroglycerin (From Rectiv) AdvReac Severe Other Verified 01/10/25 14:03 perfume AdvReac Nausea Verified 01/10/25 14:03 petrolatum,white (From AdvReac Other Verified 01/10/25 14:03 Petroleum Jelly) tramadol AdvReac Unknown Verified 01/10/25 14:03 Family History Father Heart disease Mother Colon cancer Diverticula of colon Psoriasis Surgical History H/O total vaginal hysterectomy H/O dilation and curettage H/O hemorrhoidectomy S/P cholecystectomy Total knee replacement status Social History Smoking Status: Never smoker alcohol intake: never substance use type: does not use caffeine: Yes what type of physical activity do you participate in: walking do you feel safe at home: Yes additional social history: [place]- retired ROS ROS ED Constitutional Constitutional ED: Denies chills or fever(s) Gastrointestinal Gastrointestinal: Reports abdominal pain and other Details: Pelvic pain ; Denies diarrhea, melena, nausea or vomiting Genitourinary Genitourinary ED: Reports other Details: Urinary urgency ; Denies dysuria or hematuria Musculoskeletal Musculoskeletal: Reports back pain Neurologic Neurologic: Denies paresthesias or weakness Hematologic/Lymphatic Hematologic/Lymphatic: Denies easy bleeding or easy bruising EXAM Physical Exam Const Vital Signs: 01/10/25 14:00 01/10/25 16:00 01/10/25 17:58 Temperature 97.5 F L 98.1 F Temperature Source Temporal Pulse Rate 88 79 79 Respiratory Rate 20 H 17 17 Blood Pressure 188/86 H 145/59 H 145/59 H Blood Pressure Mean 120 87 87 Pulse Ox 97 98 98 Oxygen Delivery Method Room Air Room Air Positive well nourished and well developed General Appearance ED: well developed and NAD HEENT Reports moist mucous membranes Eyes PERRL Neck supple Chest Wall inspection of chest normal and palpation of chest normal Resp normal respiratory effort and clear to auscultation bilaterally Cardio regular rate GI non-tender and non-distended GI Narrative: Reducible umbilical hernia present. Soft. No reproducible tenderness with palpation of the abdomen. Points to pain in her right lower quadrant/flank Auscultation: normoactive bowel sounds Palpation: soft Back/Spine no CVA tenderness Extremity normal to inspection Extremity Narrative: 2+ DP pulses present Neuro oriented x3 Sensorium / Orientation: alert Motor Exam: general weakness Psych mental status grossly normal Skin no rashes or lesions noted MDM MDM MDM Narrative Medical decision making narrative: Patient evaluated for sudden onset of right flank pain. Radiates from her back to her lower abdomen. She appears uncomfortable upon initial evaluation. Vital sign significant for mild hypertension. She is on pulsatile abdominal mass and has equal peripheral pulses. Low sufficient for AAA. Differential includes renal colic, diverticulitis less likely appendicitis or pyelonephritis. Patient is she does not want any opioids because she is worried about constipation (had issue with opioid-induced constipation after knee surgery in the past). She is amenable to Toradol. CBC normal. CMP normal with normal creatinine. No significant electrolyte abnormalities. Urinalysis shows 500 leukocyte esterase but 10-25 red blood cells, 0-5 white blood cells and 1+ bacteria. There is some mild contamination (0-5 squamous epithelial cells). CT of the abdomen pelvis shows a 3 mm right UVJ obstructing calculus with mild hydro ureter nephrosis and perinephric soft tissue stranding. There is additional right interpolar region punctate nonobstructing calculus. No other acute process noted. Patient is reevaluated. She was feeling better but then had worsening pain. Is now amenable to dose of IV Dilaudid (had a localized reaction of arm burning sensation after morphine in the past). On repeat evaluation she does feel improvement. She now is having more of a sensation of acid reflux and gas. She is offered admission but counseled likely she will require transfer since we do not have any urology on-call today or tomorrow. She states at this time she would like to go home and treat with pain management. As she does have 500 leukocyte esterase and 1+ bacteria out of abundance of caution we will also start her on antibiotics in case there is associated infection. Patient is given return precautions. Lab Data Attestation: I reviewed the patient's lab results. Labs: Laboratory Results - last 24 hr 01/10/25 01/10/25 14:09 14:37 WBC 7.6 RBC 4.35 Hgb 14.1 Hct 41.1 MCV 94.5 MCH 32.4 H MCHC 34.3 RDW Std Deviation 45.5 H RDW Coeff of [place] 13.3 Plt Count 236 MPV 9.8 Immature Gran % (Auto) 0.100 Neut % (Auto) 64.8 Lymph % (Auto) 23.2 [place] % (Auto) 9.9 Eos % (Auto) 1.6 Baso % (Auto) 0.4 Absolute Neuts (auto) 4.9 Absolute Lymphs (auto) 1.76 Nucleated RBC % 0 Sodium 141 Potassium 3.1 L Chloride 106 Carbon Dioxide 22.7 Anion Gap 12 BUN 21 H Creatinine 0.85 Estim Creat Clear Calc 65.15 Est GFR (MDRD) Non-Af 73 BUN/Creatinine Ratio 24.2 H Glucose 123 H Calcium 9.4 Total Bilirubin 0.47 AST 26 ALT 28 Alkaline Phosphatase 69 Total Protein 7.1 Albumin 4.1 Globulin 2.9 Albumin/Globulin Ratio 1.4 Urine Color Yellow Urine Clarity Clear Urine pH 5.0 Ur Specific [place] 1.025 Urine Protein 15 H Urine Glucose (UA) Normal Urine Ketones Negative Urine Occult Blood 150 H Urine Nitrite Negative Urine Bilirubin Negative Urine Urobilinogen Normal Ur Leukocyte Esterase 500 H Urine RBC 10-25 SEEN Urine WBC 0-5 SEEN Ur Squamous Epith Cells 0-5 SEEN Urine Bacteria 1+ Hyaline Casts 0-5 SEEN Urine Mucus 0 SEEN Radiography Diagnostic Testing: Clinical Impression(s) from Imaging Studies Abdomen/Pelvis CT 01/10/25 14:19 IMPRESSION: 1. 3 mm right UVJ obstructing calculus with mild hydroureteronephrosis and perinephric soft tissue stranding. Additional right interpolar region punctate nonobstructing calculus. 2. Colonic diverticulosis without diverticulitis. 3. Hepatomegaly without focal lesion. Reading Location: [facility] Discharge Plan Triage Chief Complaint: Back ED Provider: Lashay Johnson Dx/Rx/DC Orders Clinical Impression: Renal colic on right side, Calculus of ureterovesical junction (UVJ) Instructions: ED Kidney Stone with Pain Prescriptions: New tamsulosin [Flomax] 0.4 mg capsule 0.4 mg PO DAILY Qty: 7 0RF ibuprofen 600 mg tablet 600 mg PO Q6H PRN PRN (Reason: pain) Qty: 20 0RF sulfamethoxazole-trimethoprim [Bactrim DS] 800-160 mg tablet 1 tab PO BID Qty: 14 0RF hydrocodone-acetaminophen 5-325 mg tablet 1 tab PO Q6H PRN PRN (Reason: Pain) 3 Days Qty: 12 0RF No Action metronidazole [Flagyl] 500 mg tablet 500 mg PO BID Biestrogen 1 applicatio TOPICAL QHS Patient Comments: INNER WRIST APPLICATION Progesterone 20% 1 applicatio TOPICAL QHS Patient Comments: INNER THIGH Testosterone 1% 1 applicatio TOPICAL QHS Patient Comments: APPLIED TO BUTTOCK AREA multivitamin 1 EACH tablet 1 ea PO DAILY zinc 50 MG tablet 30 mg PO DAILY vitamin B complex 1 EACH capsule 1 ea PO DAILY coenzyme Q15-usvgacy E 1 EACH capsule 1 ea PO DAILY omega-3 fatty acids-fish oil 1 EACH capsule,delayed release(DR/EC) 1 ea PO DAILY micki extract 500 MG capsule 500 mg PO DAILY iodine 150 MCG tablet 150 mcg PO DAILY L.acidoph,paracasei,B.animalis 1 EACH capsule 1 ea PO QHS vitamin D3-vitamin K2 (MK4) 1 EACH tablet 1 ea PO DAILY Primary Care Provider: Mag Hoang Referrals: Komal Torres MD [Med Staff - Active Staff] - Mag Honag DO [Primary Care Provider] - Activity Restrictions/Additional Instructions: You have a 3 mm kidney stone that is at the junction between the ureter and the bladder (just about to pass). If your pain becomes too severe please return to the emergency room. Make sure you are drinking plenty of fluids. Take medication as prescribed. I do recommend [id number] senna or MiraLAX to help have regular bowel movements while taking pain medication. Please follow-up with urology. Print Language: Ukrainian Disposition Disposition: Home, Self Care Discharge Date/Time: 01/10/25 17:58
[2025-01-10 14:50] LABS: Absolute Lymphocyte Count 1.76 X10^3/uL (0.83-4.51); Absolute Neutrophil Count 4.9 X10^3/uL (2.0-7.7); Basophil# 0.03 X10^3/uL; Basophil% 0.4 % (0-1); Eosinophil# 0.12 X10^3/uL; Eosinophils% 1.6 % (0-5); Hematocrit 41.1 % (37-47); Hemoglobin 14.1 g/dL (12.0-15.0); Lymphocyte # 1.76 X10^3/ul (0.83-4.51); Lymphocyte % 23.2 % (19-41); Mean Corp Hgb Conc 34.3 g/dL (32-36); Mean Corpuscular Hgb 32.4 pg (27.0-32.0); Mean Corpuscular Volume 94.5 fL (81-99); Mean Platelet Vol. 9.8 fl (6.2-12.0); Monocyte# 0.75 X10^3/uL; Monocyte% 9.9 % (0-10); NRBC Flagged by Analyzer 0 % (0-5); Neutrophil # 4.93 X10^3/uL (2.7-7.7); Neutrophil % 64.8 % (47-70); Platelet Count 236 K/mm3 (150-450); RBC Distribution Width CV 13.3 % (11.6-14.6); RBC Distribution Width SD 45.5 fl (35.1-43.9); Red Blood Count 4.35 M/mm3 (4.2-5.4); White Blood Count 7.6 K/mm3 (4.4-11.0)
[2025-01-10 15:03] LABS: ALB/GLOB Ratio 1.4 RATIO (0.9-2.4); AST(SGOT) 26 U/L (<=31); Alanine Aminotransfer ALT/SGPT 28 U/L (<=34); Albumin, Serum 4.1 g/dL (3.4-4.8); Alkaline Phosphatase 69 U/L (35-104); Anion Gap 12 (5-15); BUN 21 mg/dL (4-19); BUN/Creat Ratio 24.2 RATIO (10-20); Calcium,Total 9.4 mg/dL (7.6-11.0); Carbon Dioxide 22.7 mmol/L (21.0-32.0); Chloride 106 mmol/L (98-108); Creatinine, Serum 0.85 mg/dL (0.70-1.20); EST Glomerular Filtration Rate 73 (>60); Estimated Creatinine Clearance 65.15 ml/min (50-250); Globulin 2.9 g/dL (2.2-4.2); Glucose 123 mg/dL (70-99); Potassium 3.1 mmol/L (3.3-5.1); Protein, Total 7.1 g/dL (5.9-8.4); Sodium Level 141 mmol/L (133-145); Total Bilirubin 0.47 mg/dL (0.00-1.30)
[2025-01-10 16:00] VITALS: BP 145/59; PULSE 79; RESP 17; O2SAT 98
[2025-01-10] MEDS: HYDROmorphone 0.5 MG/0.5 ML SYRINGE IV (16:10)
[2025-01-10 17:58] VITALS: BP 145/59; PULSE 79; RESP 17; TEMP 36.7; O2SAT 98
== END 2025-01-10 17:58 | disposition home or self-care (01) ==
PROVIDERS: Emergency Provider Emergency Medicine; PCP Internal Medicine; Visit Provider Emergency Medicine
DX: N23 Unspecified renal colic (principal); N13.2 Hydronephrosis with renal and ureteral calculous obstruction; Z86.718 Personal history of other venous thrombosis and embolism
CPT/HCPCS: 74176; 80053; 81001; 85025; 87086; 96374; 96375; 96376; 99282; A4216

== ENCOUNTER → 2025-01-29 | Outpatient (CLI) | payer MEDICARE, OTHER, SELFPAY ==
[2025-01-29 15:18] LABS: Hemoglobin A1c 5.5 % (<=5.6)
[2025-01-29 15:46] LABS: Vitamin D,25 Hydroxy 73.4 ng/mL (30-100)
[2025-01-29 16:37] LABS: FOLATES,SERUM (FOLIC ACID) > 40.00 ng/mL (4.60-34.80)
[2025-01-31 08:08] LABS: HOMOCYSTEINE 9.4 umol/L (0.0-19.2); PROGESTERONE 0.6 ng/mL (.)
== END | disposition home or self-care (01) ==
LOC: LAB 14:00
PROVIDERS: PCP Internal Medicine
DX: E55.9 Vitamin D deficiency, unspecified (principal); E78.00 Pure hypercholesterolemia, unspecified; R53.83 Other fatigue; R52 Pain, unspecified
CPT/HCPCS: 36415; 82306; 82627; 82746; 83036; 83090; 83735; 84144; 82626

== ENCOUNTER → 2025-02-05 | Outpatient (CLI) | payer MEDICARE, OTHER, SELFPAY ==
--- NOTE | 2025-02-05 14:31 | BI_ITS ---
EXAM: SCRN MAMM (CAD)W/LUKAS BILAT 02/05/2025 CLINICAL HISTORY: F, Age 74 y/o , SCREENING TECHNIQUE: Bilateral screening digital breast tomosynthesis with 2D and 3D images. Computer aided detection. COMPARISON: No priors available. FINDINGS: TISSUE DENSITY: The breast tissue is composed of scattered area of fibroglandular density. Right breast: There is a mass in the slightly lower outer right breast at posterior depth. Left breast: There is an asymmetry in the central left breast at anterior depth visualized on the MLO view. BI/SCRN MAMM (CAD)W/LUKAS BILAT IMPRESSION: 1. The mass in the slightly lower outer right breast at posterior depth requir es further evaluation. Recommend diagnostic ultrasound of the right breast. 2. The asymmetry in the central left breast at anterior depth visualized on th e MLO view requires further evaluation. Recommend diagnostic mammogram of the left breast and ultrasound on the day of diagnostic if indicated. Right Breast: BIRADS 0 Incomplete: Need additional imaging evaluation and/or pr ior mammograms for comparison.. Left Breast: BIRADS 0 Incomplete: Need additional imaging evaluation and/or pr ior mammograms for comparison.. OVERALL FINAL ASSESSMENT: BIRADS 0 Incomplete: Need additional imaging evaluati on and/or prior mammograms for comparison.. RECOMMENDATION: Additional projections. A letter with findings and recommendations will be mailed to the patient. Reading Location: [id number]
== END | disposition home or self-care (01) ==
LOC: OPBI 14:29
PROVIDERS: PCP Internal Medicine
DX: Z12.31 Encounter for screening mammogram for malignant neoplasm of breast (principal)
CPT/HCPCS: 77063; 77067

== ENCOUNTER → 2025-02-23 | Outpatient (CLI) | payer MEDICARE, OTHER, SELFPAY ==
--- NOTE | 2025-02-23 12:25 | BI_ITS ---
EXAM: DIAG MAMM W/CAD, BILAT 02/23/2025 CLINICAL HISTORY: F, Age 74 y/o , ABN screening MAMM TECHNIQUE: Compression spot views of the left breast in the mediolateral oblique and craniocaudad projections were obtained. Computer aided detection. COMPARISON: Prior exam(s) dated February 05, 2025.. FINDINGS: TISSUE DENSITY: The breast tissue is composed of scattered area of fibroglandular density. Bilateral Breast Mammographic Findings: No significant masses, calcifications or other abnormalities are identified. Targeted sonographic correlation recommended. BI/DIAG MAMM W/CAD, BILAT IMPRESSION: OVERALL FINAL ASSESSMENT: BIRADS 0 Incomplete: Need additional imaging evaluati on and/or prior mammograms for comparison.. RECOMMENDATION: Targeted sonographic correlation recommended. A letter with findings and recommendations will be mailed to the patient. Reading Location: [place] [id number]
--- NOTE | 2025-02-23 12:27 | US_ITS ---
PROCEDURE: BREAST LIMITED UNILATERAL 02/23/2025 REASON FOR EXAM: ABN MAMM TECHNIQUE: Targeted right breast ultrasound. COMPARISON: Prior mammogram done earlier in the day. FINDINGS: Right breast ultrasound was targeted to the lateral aspect of the right breast.. There is a 5 mm x 5 mm x 6 mm cyst at the 9 o'clock position of the breast at 8 cm from the nipple. US/Breast Limited Unilateral IMPRESSION: 5 mm x 5 mm x 6 mm cyst at the 9 o'clock position of the breast at 8 cm from th e nipple. Follow-up code: Routine Follow-up Reading Location: [facility]
--- NOTE | 2025-02-23 12:27 | US_ITS ---
PROCEDURE: BREAST LIMITED UNILATERAL 02/23/2025 REASON FOR EXAM: ABN MAMM TECHNIQUE: Targeted left breast ultrasound. COMPARISON: Prior mammogram done earlier in the day. FINDINGS: Left breast ultrasound was targeted to the lateral aspect of the left breast. There is a 4 mm x 4 mm x 3 mm cyst at the 3 o'clock position of the breast at 9 cm from the nipple. US/Breast Limited Unilateral IMPRESSION: Impression: 4 mm x 4 mm x 3 mm cyst at the 3 o'clock position of the breast at 9 cm from the nipple. Birads: BI-RADS 2: BENIGN. RECOMMEND ANNUAL MAMMOGRAPHIC SCREENING. Reading Location: [place] [id number]
== END | disposition home or self-care (01) ==
LOC: OPBI 11:47
PROVIDERS: PCP Internal Medicine
DX: R92.8 Other abnormal and inconclusive findings on diagnostic imaging of breast (principal)
CPT/HCPCS: 76642; 77066

== ENCOUNTER → 2025-08-09 | Outpatient (CLI) | payer MEDICARE, OTHER, SELFPAY ==
[2025-08-09 12:07] LABS: Hematocrit 44.5 % (37-47); Hemoglobin 14.7 g/dL (12.0-15.0); Mean Corp Hgb Conc 33.0 g/dL (32-36); Mean Corpuscular Volume 91.8 fL (81-99); Mean Platelet Vol. 9.8 fl (6.2-12.0); Platelet Count 283 K/mm3 (150-450); RBC Distribution Width CV 13.7 % (11.6-14.6); RBC Distribution Width SD 46.7 fl (35.1-43.9); Red Blood Count 4.85 M/mm3 (4.2-5.4); White Blood Count 4.9 K/mm3 (4.4-11.0)
[2025-08-09 13:27] LABS: AST(SGOT) 28 U/L (<=31); Alanine Aminotransfer ALT/SGPT 26 U/L (<=34); Albumin, Serum 4.4 g/dL (3.4-4.8); Alkaline Phosphatase 72 U/L (35-104); Anion Gap 13 (5-15); BUN 17 mg/dL (4-19); BUN/Creat Ratio 21.9 RATIO (10-20); CORTISOL AM 11.80 ug/dL (6.02-18.40); Calcium,Total 9.9 mg/dL (7.6-11.0); Carbon Dioxide 23.6 mmol/L (21.0-32.0); Chloride 102 mmol/L (98-108); Cholesterol 304 mg/dL (<=200); Ferritin 83 ng/mL (22-378); Free T3 4.0 pg/mL (2.18-3.98); Globulin 3.4 g/dL (2.2-4.2); Glucose 90 mg/dL (70-99); Low Density Lipoprotein Calc. 211 mg/dL; Potassium 3.9 mmol/L (3.3-5.1); Triglycerides 71 mg/dL; Very Low Density Lipoprotein 14 mg/dL (5-40); Vitamin B12 878 pg/mL (180-914); Vitamin D,25 Hydroxy 116.0 ng/mL (30-100); cholesterol:hdl ratio screen 3.70
[2025-08-09 13:57] LABS: FOLATES,SERUM (FOLIC ACID) > 40.00 ng/mL (4.60-34.80)
[2025-08-09 14:19] LABS: Iron Binding Capacity,Total 367 ug/dL (250-450)
[2025-08-09 14:31] LABS: CRP < 3.00 mg/L (0.0-3.0); Iron 93 ug/dL (50-170); Iron Binding Capacity,Unsat 274 ug/dL (228-428); Magnesium 2.2 mg/dL (1.5-2.2); Uric Acid 6.0 mg/dL (2.6-6.0)
[2025-08-10 08:09] LABS: HOMOCYSTEINE 12.5 umol/L (0.0-19.2); PROGESTERONE 0.6 ng/mL (.)
[2025-08-11 11:04] LABS: Immature Granulocytes Count 0.050 X10^3/uL (0.0-0.0); NRBC Flagged by Analyzer 0 % (0-5)
[2025-08-12 09:08] LABS: CRP, High Sensitivity 1.23 mg/L (0.00-3.00)
[2025-08-13 12:08] LABS: Somatomedin C 119 ng/mL (48-191); Testosterone, % Free 1.17 % (0.50-2.80); Testosterone, Free 0.49 ng/dL (0.10-0.85); Thyroglobulin, Serum Qt. 6.8 ng/mL (1.5-38.5)
== END | disposition home or self-care (01) ==
PROVIDERS: PCP Internal Medicine
DX: E55.9 Vitamin D deficiency, unspecified (principal); E78.00 Pure hypercholesterolemia, unspecified; R53.83 Other fatigue; N95.9 Unspecified menopausal and perimenopausal disorder; R52 Pain, unspecified; I10 Essential (primary) hypertension
CPT/HCPCS: 36415; 80053; 80061; 82306; 82330; 82533; 82607; 82627; 82670; 82728; 82746; 83036; 83090; 83525; 83540; 83550; 83695; 83735; 84144; 84270; 84305; 84402; 84403; 84432; 84439; 84443; 84481; 84482; 84550; 85025; 85027; 86140; 86141; 86376; 86800; 82626